=== PATIENT | female | born 1990 | race African-American/Black ===

== ENCOUNTER 2018-04-15 18:14 | Emergency (ER) | payer BC, SELFPAY ==
--- NOTE | 2018-04-15 20:24 | RAD REPORT ---
EXAM DESCRIPTION: RAD - Foot Left 3 View - 04/15/2018 7:31 pm CLINICAL HISTORY: Pain;Swelling<Reason For Exam>Pain;Swelling COMPARISON: No comparisons<Comparisons> FINDINGS: Transverse fracture is present at the proximal shaft fifth metatarsal. No distraction or a ngulation deformity. No other fracture or acute bone finding. No destructive bone process. Soft tissue swelling is present near the fracture site. No foreign body. IMPRESSION: Transverse fracture proximal shaft fifth metatarsal without distraction or angulation.
--- NOTE | 2018-04-15 20:25 | RAD REPORT ---
EXAM DESCRIPTION: RAD - Ankle Left 3 View - 04/15/2018 7:32 pm CLINICAL HISTORY: Pain;Swelling<Reason For Exam> COMPARISON: No comparisons<Comparisons> FINDINGS: No fracture, dislocation or periosteal reaction. No joint effusion seen. No joint space na rrowing. No soft tissue abnormality. Lateral soft tissue swelling is present. IMPRESSION: Soft tissue swelling with no left ankle fracture.
--- NOTE | 2018-04-15 20:38 | EDPHYS ---
Physician Documentation [facility] Name: Denis Arroyo Age: 27 yrs Sex: Female : 1990 Arrival Date: 04/15/2018 Time: 18:23 Bed 11 Private MD: ED Physician Chris Hill HPI: 04/15 19:31 This 27 yrs old Black Female presents to ER via Ambulatory with complaints of Left pm1 Ankle Injury. 19:31 The patient presents with pain, that is acute. The complaints affect the left ankle. pm1 19:31 Onset: The symptoms/episode began/occurred 3 day(s) ago. Context: The problem was pm1 sustained outdoors, resulted from hit by a horseshoe. Associated signs and symptoms: Pertinent positives: swelling, Pertinent negatives: calf tenderness, fever. Modifying factors: the symptoms are aggravated by wearing shoes. Severity of symptoms: in the emergency department the symptoms are actually worse. The patient has not experienced similar symptoms in the past. [place] a horseshoe on the lateral aspect of her left ankle and foot. 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 - Social history:: Smoking status: Patient/guardian denies using tobacco. - Ebola Screening: : No symptoms or risks identified at this time. ROS: 19:31 Constitutional: Negative for fever, chills, and weight loss, Eyes: Negative for injury, pm1 pain, redness, and discharge, ENT: Negative for injury, pain, and discharge, Neck: Negative for injury, pain, and swelling, Cardiovascular: Negative for chest pain, palpitations, and edema, Respiratory: Negative for shortness of breath, cough, wheezing, and pleuritic chest pain, Abdomen/GI: Negative for abdominal pain, nausea, vomiting, diarrhea, and constipation, Back: Negative for injury and pain. 19:31 Skin: Negative for injury, rash, and discoloration, Neuro: Negative for headache, weakness, numbness, tingling, and seizure. 19:31 MS/extremity: Positive for pain, swelling, tenderness, of the lateral side of left foot and left lateral ankle. Exam: 19:31 Constitutional: This is a well developed, well nourished patient who is awake, alert, pm1 and in no acute distress. Head/Face: Normocephalic, atraumatic. Neck: Trachea midline, no thyromegaly or masses palpated, and no cervical lymphadenopathy. Supple, full range of motion without nuchal rigidity, or vertebral point tenderness. No Meningismus. Chest/axilla: Normal chest wall appearance and motion. Nontender with no deformity. No lesions are appreciated. Cardiovascular: Regular rate and rhythm with a normal S1 and S2. No gallops, murmurs, or rubs. Normal PMI, no JVD. No pulse deficits. Respiratory: Lungs have equal breath sounds bilaterally, clear to auscultation and percussion. No rales, rhonchi or wheezes noted. No increased work of breathing, no retractions or nasal flaring. Back: No spinal tenderness. No costovertebral tenderness. Full range of motion. Skin: Warm, dry with normal turgor. Normal color with no rashes, no lesions, and no evidence of cellulitis. 19:31 Musculoskeletal/extremity: Extremities: grossly normal except: noted in the left lateral ankle and lateral side of left foot: swelling, tenderness, There is no evidence of decreased ROM, ROM: intact in all extremities, Circulation is intact in all extremities. Vital Signs: 18:40 BP 142 / 94; Pulse 104; Resp 18; Temp 97.4; Pulse Ox 100% ; Weight 72.57 kg; Height 5 sv ft. 6 in. (167.64 cm); Pain 4/10; 21:18 BP 131 / 84; Pulse 89; Resp 16; Pulse Ox 99% ; Pain 2/10; sr5 18:40 Body Mass Index 25.82 (72.57 kg, 167.64 cm) sv MDM: 19:20 Patient medically screened. pm1 20:30 Data reviewed: vital signs. Data interpreted: Pulse oximetry: on room air is 100 %. pm1 Interpretation: normal. Counseling: I had a detailed discussion with the patient and/or guardian regarding: the historical points, exam findings, and any diagnostic results supporting the discharge/admit diagnosis, radiology results, the need for outpatient follow up, for definitive care, a orthopedic surgeon, a armature repairer, to return to the emergency department if symptoms worsen or persist or if there are any questions or concerns that arise at home. 04/15 18:41 Order name: Foot Left 3 View XRAY; Complete Time: 20:28 sv 04/15 18:41 Order name: Ankle Left 3 View XRAY; Complete Time: 20:28 sv 04/15 20:30 Order name: Posterior Orthoglass Ankle Splint; Complete Time: 21:16 pm1 04/15 20:30 Order name: Crutches; Complete Time: 21:16 pm1 Administered Medications: No medications were administered Disposition: 04/16 01:17 Co-signature as Attending Physician, Chris Hill MD I agree with the assessment and tw4 plan of care. Attestation: The patient's history, exam findings, diagnostics, and a summary of any interventions or procedures was reviewed in detail with Az Gary NP. Disposition: 04/15/18 20:35 Discharged to Home. Impression: Displaced fracture of fifth metatarsal bone, left foot. - Condition is Stable. - Discharge Instructions: Cast or Splint Care, Adult, Crutch Use, Metatarsal Fracture. - Prescriptions for Tylenol- Codeine #3 300-30 mg Oral Tablet - take 2 tablets by ORAL route every 6 hours As needed; 20 tablet. - Medication Reconciliation Form, Thank You Letter, Antibiotic Education, Prescription Opioid Use, Work release form form. - Follow up: Emergency Department; When: As needed; Reason: Worsening of condition. Follow up: Miguel Chapman MD; When: 2 - 3 days; Reason: Recheck today's complaints, Continuance of care, Re-evaluation by your physician. Follow up: Rangel Lomas DPM; When: 2 - 3 days; Reason: Recheck today's complaints, Continuance of care, Re-evaluation by your physician. - Problem is new. - Symptoms have improved. Signatures: Dispatcher [employer] Susanna Kearney RN RN sv Marinas, Patrick, NP MACHINE III COREMAKER pm1 Foreign Husain RN RN sr5 Chris Hill MD MD tw4 Corrections: (The following items were deleted from the chart) 04/15 21:16 20:35 04/15/2018 20:35 Discharged to Home. Impression: Displaced fracture of fifth sr5 metatarsal bone, left foot. Condition is Stable. Forms are Medication Reconciliation Form, Thank You Letter, Antibiotic Education, Prescription Opioid Use. Follow up: Emergency Department; When: As needed; Reason: Worsening of condition. Follow up: Miguel Chapman; When: 2 - 3 days; Reason: Recheck today's complaints, Continuance of care, Re-evaluation by your physician. Follow up: Dr. Rangel Lomas; When: 2 - 3 days; Reason: Recheck today's complaints, Continuance of care, Re-evaluation by your physician. Problem is new. Symptoms have improved. pm1
--- NOTE | 2018-04-15 20:38 | ER ---
Nurse's Notes [facility] Name: Denis Arroyo Age: 27 yrs Sex: Female : 1990 Arrival Date: 04/15/2018 Time: 18:23 Bed 11 Private MD: Diagnosis: Displaced fracture of fifth metatarsal bone, left foot Presentation: 04/15 18:38 Presenting complaint: Patient states: left foot and ankle pain after "hearing a pop" sv and then having a horseshoe land on her left foot. Transition of care: patient was not received from another setting of care. Onset of symptoms is unknown. Care prior to arrival: None. 18:38 Method Of Arrival: Ambulatory sv 18:38 Acuity: SALINAS 4 sv 21:21 Risk Assessment: Do you want to hurt yourself or someone else?. sr5 Triage Assessment: 18:41 General: Appears in no apparent distress. uncomfortable, Behavior is calm, cooperative, sv appropriate for age. Pain: Complains of pain in left foot and left lateral ankle Pain currently is 4 out of 10 on a pain scale. Neuro: Level of Consciousness is awake, alert, obeys commands, Oriented to person, place, time, situation, Moves all extremities. Full function Gait is steady. Respiratory: Respiratory effort is even, unlabored, Respiratory pattern is regular, symmetrical. 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 - Social history:: Smoking status: Patient/guardian denies using tobacco. - Ebola Screening: : No symptoms or risks identified at this time. Screenin:18 Abuse screen: Denies threats or abuse. Nutritional screening: No deficits noted. sr5 Tuberculosis screening: No symptoms or risk factors identified. Fall Risk No fall in past 12 months (0 pts). Secondary diagnosis (15 points) No IV (0 pts). Ambulatory Aid- Crutches/Cane/Walker (15 pts). Gait- Impaired (20 pts.). Mental Status- Oriented to own ability (0 pts). Total Jimenez Fall Scale indicates Low Risk Score (25-44 pts). Fall prevention measures have been instituted. Side Rails Up X 2 Family Present and informed to notify staff if they need to leave bedside As available Patient and Family Educated on Fall Prevention Program and strategies. Assessment: 21:18 General: Appears uncomfortable, Behavior is calm, cooperative. Pain: Complains of pain sr5 in left leg and left foot and left lateral ankle. Neuro: No deficits noted. Cardiovascular: No deficits noted. Respiratory: No deficits noted. GI: No deficits noted. : No deficits noted. EENT: No deficits noted. Derm: No deficits noted. Musculoskeletal: Swelling present in left foot and left lateral ankle. Vital Signs: 18:40 BP 142 / 94; Pulse 104; Resp 18; Temp 97.4; Pulse Ox 100% ; Weight 72.57 kg; Height 5 sv ft. 6 in. (167.64 cm); Pain 4/10; 21:18 BP 131 / 84; Pulse 89; Resp 16; Pulse Ox 99% ; Pain 2/10; sr5 18:40 Body Mass Index 25.82 (72.57 kg, 167.64 cm) sv ED Course: 18:23 Patient arrived in ED. es 18:39 Triage completed. sv 18:40 Arm band placed on left wrist. sv 18:41 X-ray ordered. sv 19:15 Foreign Husain, RN is Primary Nurse. sr5 19:20 Az Gary NP is PHCP. pm1 19:20 Chris Hill MD is Attending Physician. pm1 19:23 Foot Left 3 View XRAY In Process Unspecified. EDMS 19:23 Ankle Left 3 View XRAY In Process Unspecified. EDMS 20:31 Miguel Chapman MD is Referral Physician. pm1 20:34 Rangel Lomas DPM is Referral Physician. pm1 21:18 Patient has correct armband on for positive identification. Bed in low position. Call sr5 light in reach. 21:18 No provider procedures requiring assistance completed. Patient did not have IV access sr5 during this emergency room visit. Crutch training done. Orthoglass splint: Posterior short lleg splint applied on left leg. pt tolerated splint application well, cap refill <3 seconds, splint education provided. Administered Medications: No medications were administered Outcome: 20:35 Discharge ordered by . pm1 21:16 Patient left the ED. sr5 21:16 Discharged to home via wheelchair, with crutches, with family. sr5 21:16 Condition: good 21:16 Instructed on discharge instructions, follow up and referral plans. crutch walking, splint care Demonstrated understanding of instructions, follow-up care, crutch walking, splint care. Signatures: Dispatcher [employer] Susanna Kearney, RN RN Franchesca De La O Patrick, SOFTWARE DEVELOPMENT ANALYST SOFTWARE DEVELOPMENT ANALYST pm1 Foreign Husain RN RN sr5
== END 2018-04-15 21:16 | disposition home or self-care (01) ==
LOC: ER 18:14
DX: S92.352A Displaced fracture of fifth metatarsal bone, left foot, initial encounter for closed fracture (principal); W21.89XA Striking against or struck by other sports equipment, initial encounter; Y93.89 Activity, other specified; Y92.9 Unspecified place or not applicable; E11.8 Type 2 diabetes mellitus with unspecified complications
CPT/HCPCS: 99283

== ENCOUNTER 2018-05-26 21:47 | Emergency (ER) | payer SELFPAY ==
[2018-05-26] MEDS ORDERED: NA CHLORIDE 0.9% 1,000 ML ONE (23:06)
[2018-05-26 23:12] LABS: Urine Blood 2+ (NEG); Urine Glucose 2+ (NEG); Urine Protein 3+ (NEG); Urine pH 5.5 (5.0-7.0)
[2018-05-26] MEDS ORDERED: CEFTRIAXONE/SWI 1gm 1 GM/10 ML SYR ONE (23:33)
[2018-05-26] MEDS ORDERED: INSULIN -REGULAR HUMAN 50 UNIT/0.5 ML ML ONE (23:33)
[2018-05-26 23:37] LABS: Absolute Lymphocytes (CBC) 1.1 K/uL (0.7-4.9); Absolute Monocytes 0.8 K/uL (0.1-1.3); Basophils % 0.4 % (0-1.3); Eosinophils % 0.4 % (0-4.4); Hematocrit 38.8 % (36.0-45.0); Lymphocytes % 9.2 % (15.3-44.8); MCH 23.7 pg (27.0-35.0); MCV 74.2 fL (80-100); Monocytes % 6.8 % (3.3-12.3); RBC Red Blood Cell Count 5.22 M/uL (3.86-4.86)
[2018-05-26 23:48] LABS: ALT/SGPT 16 U/L (12-78); AST/SGOT 11 U/L (15-37); Albumin 3.3 g/dL (3.4-5.0); Alkaline Phosphatase 86 U/L (45-117); BUN Blood Urea Nitrogen 10 mg/dL (7-18); Bicarbonate 26 mmol/L (21-32); Bilirubin Direct < 0.1 mg/dL (0-0.2); Bilirubin Total 0.2 mg/dL (0.2-1.0); Glucose Level 391 mg/dL (74-106); Potassium 3.7 mmol/L (3.5-5.1); Protein, Total 7.8 g/dL (6.4-8.2); Sodium Level 135 mmol/L (136-145)
[2018-05-27 00:20] LABS: Urine Bacteria <20 /HPF (<20); Urine Culture Reflex Order NOT NEEDED
--- NOTE | 2018-05-27 01:17 | ER ---
Nurse's Notes [facility] Name: Denis Arroyo Age: 27 yrs Sex: Female : 1990 Arrival Date: 05/26/2018 Time: 22:00 Bed 30 Private MD: Corky Hicks R Diagnosis: Urinary tract infection, site not specified;Diabetes mellitus due to underlying condition with hyperglycemia Presentation: 05/26 22:32 Presenting complaint: Patient states: left flank pain, no urinary complaints, no CVA tl3 tenderness. Started this am. Transition of care: patient was not received from another setting of care. Onset of symptoms was May 26, 2018 at 07:00. Risk Assessment: Do you want to hurt yourself or someone else? Patient reports no desire to harm self or others. Initial Sepsis Screen: Does the patient meet any 2 criteria? No. Patient's initial sepsis screen is negative. Does the patient have a suspected source of infection? No. Patient's initial sepsis screen is negative. Care prior to arrival: None. 22:32 Method Of Arrival: Ambulatory tl3 22:32 Acuity: SALINAS 3 tl3 Triage Assessment: 22:34 General: Appears uncomfortable, slender, well groomed, well developed, well nourished, tl3 Behavior is calm, cooperative, appropriate for age. Pain: Complains of pain in left flank. EENT: No signs and/or symptoms were reported regarding the EENT system. Neuro: Level of Consciousness is awake, alert, obeys commands. Neuro: Oriented to person, place, time, situation, Appropriate for age. Cardiovascular: Patient's skin is warm and dry. Respiratory: Airway is patent Respiratory effort is even, unlabored, Respiratory pattern is regular, symmetrical. GI: No signs and/or symptoms were reported involving the gastrointestinal system. : No signs and/or symptoms were reported regarding the genitourinary system. Urine is clear. Derm: No signs and/or symptoms reported regarding the dermatologic system. Musculoskeletal: No signs and/or symptoms reported regarding the musculoskeletal system. 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 - Social history:: Smoking status: unknown. - Ebola Screening: : No symptoms or risks identified at this time. Screenin:37 Abuse screen: Denies threats or abuse. Nutritional screening: No deficits noted. tl3 Tuberculosis screening: No symptoms or risk factors identified. Fall Risk None identified. Assessment: 22:37 Reassessment: No changes from previously documented assessment. tl3 23:21 Reassessment: Patient appears in no apparent distress at this time. No changes from tl3 previously documented assessment. Patient and/or family updated on plan of care and expected duration. Pain level reassessed. Patient is alert, oriented x 3, equal unlabored respirations, skin warm/dry/pink. 05/27 00:52 Reassessment: Patient appears in no apparent distress at this time. No changes from tl3 previously documented assessment. Patient and/or family updated on plan of care and expected duration. Pain level reassessed. Patient is alert, oriented x 3, equal unlabored respirations, skin warm/dry/pink. Patient states feeling better. Vital Signs: 05/26 22:34 BP 136 / 84; Pulse 117; Resp 20; Temp 98.7(O); Pulse Ox 100% ; tl3 23:21 BP 130 / 85; Pulse 109; Resp 18; Pulse Ox 98% on R/A; tl3 05/27 00:52 BP 152 / 92; Pulse 106; Resp 18; Pulse Ox 100% ; tl3 ED Course: 05/26 22:00 Patient arrived in ED. am2 22:00 Corky Hicks MD is Private Physician. am2 22:03 [facility]. snw 22:03 Bora Miguel MD is Attending Physician. snw 22:32 Marla Carney RN is Primary Nurse. tl3 22:33 Triage completed. tl3 22:34 Arm band placed on right wrist. tl3 22:37 Patient has correct armband on for positive identification. Bed in low position. Side tl3 rails up X 1. Pulse ox on. NIBP on. Warm blanket given. 22:37 No provider procedures requiring assistance completed. tl3 23:04 Inserted saline lock: 22 gauge in right antecubital area, using aseptic technique. jb5 Blood collected. 23:05 Urine --Ancillary (enter results) Sent. jb5 23:05 Blood Culture Adult (2) Sent. jb5 23:05 Hepatic Function Sent. jb5 23:05 Basic Metabolic Panel Sent. jb5 23:05 CBC with Diff Sent. jb5 23:05 Urine Dipstick--Ancillary (enter results) Sent. jb5 23:05 Urine Culture Sent. jb5 23:05 Urine Microscopic Only Sent. jb5 05/27 01:16 Corky Hicks MD is Referral Physician. snw 01:25 IV discontinued, intact, bleeding controlled, No redness/swelling at site. Pressure mg2 dressing applied. Administered Medications: 05/26 23:00 Drug: NS 0.9% 1000 ml Route: IV; Rate: 1 bolus; Site: right antecubital; Delivery: tl3 Primary tubing; 05/27 00:53 Follow up: IV Status: Completed infusion; IV Intake: 1000ml tl3 05/26 23:36 Drug: Rocephin 1 grams Route: IV; Rate: calculated rate; Infused Over: 5 mins; Site: tl3 right antecubital; Delivery: Primary tubing; 23:36 Follow up: IV Status: Completed infusion; IV Intake: 20ml tl3 23:36 Drug: Insulin Regular Human 5 units {Co-Signature: cornelia (Conchis Ortega RN).} Route: tl3 IVP; Site: right antecubital; 05/27 00:53 Follow up: Response: Blood sugar is lowered tl3 05/26 23:37 Drug: Insulin Regular Human 5 units {Co-Signature: cornelia (Conchis Ortega RN).} Route: tl3 Sub-Q; Site: abdomen; 05/27 00:53 Follow up: Response: Blood sugar is lowered tl3 Point of Care Testing: Blood Glucose: 05/26 22:59 Blood Glucose: 337 mg/dL; lp1 05/27 00:21 Blood Glucose: 263 mg/dL; lp1 Ranges: Intake: 05/26 23:36 IV: 20ml; Total: 20ml. tl3 05/27 00:53 IV: 1000ml; Total: 1020ml. tl3 Outcome: 01:17 Discharge ordered by . snw 01:25 Discharged to home ambulatory. mg2 01:25 Condition: stable 01:25 Discharge instructions given to patient, Instructed on discharge instructions, follow up and referral plans. medication usage, Demonstrated understanding of instructions, follow-up care, medications, Prescriptions given X 2. 01:26 Patient left the ED. mg2 Addendum: 05/30/2018 10:36 Addendum: Culture Results: Positive urine culture. Bacteria is resistant to, has i w intermediate sensitivity, or is not tested against prescribed antibiotics. Report given to WILBERT for further evaluation and then to manager transport for follow up with patient. Signatures: Beth Tran, [employer] [employer] Aleja Henry, RN RN iw Heidy Lazaro RN RN lp1 Carlita Christie jb5 Marcelina Bob am2 Marla Carney, RN RN tl3 Davidson Sullivan, NURIA RN mg2 Conchis Ortega RN fc
--- NOTE | 2018-05-27 01:17 | EDPHYS ---
Physician Documentation [facility] Name: Denis Arroyo Age: 27 yrs Sex: Female : 1990 Arrival Date: 05/26/2018 Time: 22:00 Bed 30 Private MD: Corky Hicks R ED Physician Bora Miguel HPI: 05/26 23:20 This 27 yrs old Black Female presents to ER via Ambulatory with complaints of Flank snw Pain. 23:20 The patient complains of pain in the left low back and left mid back. The pain radiates snw to the left inguinal area and left iliac crest. Onset: The symptoms/episode began/occurred suddenly, today. Associated signs and symptoms: The patient has no apparent associated signs or symptoms. Severity of pain: At its worst the pain was moderate. It is unknown whether or not the patient has had similar symptoms in the past. It is unknown whether or not the patient has recently seen a physician. no fever, no urinary s/s, no vag dc. 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 - Social history:: Smoking status: unknown. - Ebola Screening: : No symptoms or risks identified at this time. ROS: 23:19 Constitutional: Negative for fever, chills, and weight loss, Eyes: Negative for injury, snw pain, redness, and discharge, ENT: Negative for injury, pain, and discharge, Neck: Negative for injury, pain, and swelling, Cardiovascular: Negative for chest pain, palpitations, and edema, Respiratory: Negative for shortness of breath, cough, wheezing, and pleuritic chest pain, Abdomen/GI: Negative for abdominal pain, nausea, vomiting, diarrhea, and constipation, left lower quad with rad to back/flank 23:19 : Negative for injury, bleeding, discharge, and swelling, MS/Extremity: Negative for injury and deformity, Skin: Negative for injury, rash, and discoloration, Neuro: Negative for headache, weakness, numbness, tingling, and seizure. 23:19 Back: Positive for flank pain, on the left. Exam: 23:19 Constitutional: This is a well developed, well nourished patient who is awake, alert, snw and in no acute distress. Head/Face: Normocephalic, atraumatic. Eyes: Pupils equal round and reactive to light, extra-ocular motions intact. Lids and lashes normal. Conjunctiva and sclera are non-icteric and not injected. Cornea within normal limits. Periorbital areas with no swelling, redness, or edema. ENT: Nares patent. No nasal discharge, no septal abnormalities noted. Tympanic membranes are normal and external auditory canals are clear. Oropharynx with no redness, swelling, or masses, exudates, or evidence of obstruction, uvula midline. Mucous membranes moist. Neck: Trachea midline, no thyromegaly or masses palpated, and no cervical lymphadenopathy. Supple, full range of motion without nuchal rigidity, or vertebral point tenderness. No Meningismus. Chest/axilla: Normal chest wall appearance and motion. Nontender with no deformity. No lesions are appreciated. 23:19 Respiratory: Lungs have equal breath sounds bilaterally, clear to auscultation and percussion. No rales, rhonchi or wheezes noted. No increased work of breathing, no retractions or nasal flaring. Back: No spinal tenderness. No costovertebral tenderness. Full range of motion. Skin: Warm, dry with normal turgor. Normal color with no rashes, no lesions, and no evidence of cellulitis. MS/ Extremity: Pulses equal, no cyanosis. Neurovascular intact. Full, normal range of motion. Neuro: Awake and alert, GCS 15, oriented to person, place, time, and situation. Cranial nerves II-XII grossly intact. Motor strength 5/5 in all extremities. Sensory grossly intact. Cerebellar exam normal. Normal gait. 23:19 Cardiovascular: Rate: tachycardic, Rhythm: regular, Heart sounds: normal. 23:19 Abdomen/GI: Inspection: abdomen appears normal, Bowel sounds: normal, Palpation: moderate abdominal tenderness, in the left lower quadrant. Vital Signs: 22:34 BP 136 / 84; Pulse 117; Resp 20; Temp 98.7(O); Pulse Ox 100% ; tl3 23:21 BP 130 / 85; Pulse 109; Resp 18; Pulse Ox 98% on R/A; tl3 05/27 00:52 BP 152 / 92; Pulse 106; Resp 18; Pulse Ox 100% ; tl3 MDM: 05/26 23:03 Patient medically screened. w 05/27 01:21 Data reviewed: vital signs, nurses notes. Data interpreted: Pulse oximetry: on room air snw is 100 %. Interpretation: normal. Counseling: I had a detailed discussion with the patient and/or guardian regarding: the historical points, exam findings, and any diagnostic results supporting the discharge/admit diagnosis, lab results, the need for outpatient follow up, to return to the emergency department if symptoms worsen or persist or if there are any questions or concerns that arise at home. Special discussion: Based on the patient's Hx, exam, and Dx evaluation, there is no indication for emergent surgery or inpatient Tx. It is understood by the patient/guardian that if the Sx's persist or worsen they need to return immediately for re-evaluation. I have referred the patient to see his PCP for further evaluation of high blood pressure. Based on the history and exam findings, there is no indication for further emergent testing or inpatient evaluation. I discussed with the patient/guardian the need to see the primary care provider for further evaluation of the symptoms. 15:21 ED course: pt unable to afford Vantin, rx changed to Augmentin 500mg po TID x 10d and snw Macrobid 100mg po BID x 10. 05/26 22:03 Order name: Urine Culture [facility] 05/26 22:03 Order name: Urine Microscopic Only; Complete Time: 00:24 snw 05/26 22:40 Order name: Urine Dipstick--Ancillary (enter results); Complete Time: 23:14 mt 05/26 22:47 Order name: Basic Metabolic Panel; Complete Time: 23:51 snw 05/26 22:47 Order name: CBC with Diff; Complete Time: 23:51 snw 05/26 22:47 Order name: Hepatic Function; Complete Time: 23:51 snw 05/26 22:03 Order name: Urine Test (obtain specimen); Complete Time: 22:38 snw 05/26 22:03 Order name: Urine Dipstick-Ancillary (obtain specimen); Complete Time: 22:38 snw 05/26 22:47 Order name: Blood Culture Adult (2) snw 05/26 22:51 Order name: Urine --Ancillary (enter results); Complete Time: 23:14 mt 05/26 22:47 Order name: Labs collected and sent; Complete Time: 22:59 snw 05/26 22:47 Order name: FSBS; Complete Time: 22:58 snw 05/27 00:25 Order name: FSBS; Complete Time: 00:31 snw Administered Medications: 05/26 23:00 Drug: NS 0.9% 1000 ml Route: IV; Rate: 1 bolus; Site: right antecubital; Delivery: tl3 Primary tubing; 05/27 00:53 Follow up: IV Status: Completed infusion; IV Intake: 1000ml tl3 05/26 23:36 Drug: Rocephin 1 grams Route: IV; Rate: calculated rate; Infused Over: 5 mins; Site: tl3 right antecubital; Delivery: Primary tubing; 23:36 Follow up: IV Status: Completed infusion; IV Intake: 20ml tl3 23:36 Drug: Insulin Regular Human 5 units {Co-Signature: cornelia (Conchis Ortega RN).} Route: tl3 IVP; Site: right antecubital; 05/27 00:53 Follow up: Response: Blood sugar is lowered tl3 05/26 23:37 Drug: Insulin Regular Human 5 units {Co-Signature: cornelia (Conchis Ortega RN).} Route: tl3 Sub-Q; Site: abdomen; 05/27 00:53 Follow up: Response: Blood sugar is lowered tl3 Point of Care Testing: Blood Glucose: 05/26 22:59 Blood Glucose: 337 mg/dL; lp1 05/27 00:21 Blood Glucose: 263 mg/dL; lp1 Ranges: Critical Glucose Levels:Adult <50 mg/dl or >400 mg/dl <40 mg/dl or >180 mg/dl Disposition: 02:42 Co-signature as Attending Physician, Bora Miguel MD. rn Disposition: 05/27/18 01:17 Discharged to Home. Impression: Urinary tract infection, site not specified, Diabetes mellitus due to underlying condition with hyperglycemia. - Condition is Stable. - Discharge Instructions: Urinary Tract Infection, Adult, Form - Daily Diabetes Record, Hypertension, [id number], Rehydration, Adult. - Prescriptions for cefpodoxime 200 mg Oral Tablet - take 1 tablet by ORAL route every 12 hours with food; 20 tablet. promethazine 25 mg Oral Tablet - take 1 tablet by ORAL route every 6 hours As needed; 20 tablet. - Medication Reconciliation Form, Thank You Letter, Antibiotic Education, Prescription Opioid Use form. - Follow up: Corky Hicks MD; When: 1 - 2 days; Reason: Recheck today's complaints, Continuance of care, Re-evaluation by your physician. Follow up: Emergency Department; When: As needed; Reason: Worsening of condition. Signatures: Dispatcher [employer] EDMS Beth Tran, IRRIGATION SPECIALIST-C IRRIGATION SPECIALIST-Csnw Bora Miguel MD MD rn Lowrey, Tammy, RN RN tl3 Davidson Sullivan RN RN mg2 Conchis Ortega RN Corrections: (The following items were deleted from the chart) 01:26 01:17 05/27/2018 01:17 Discharged to Home. Impression: Urinary tract infection, site mg2 not specified; Diabetes mellitus due to underlying condition with hyperglycemia. Condition is Stable. Forms are Medication Reconciliation Form, Thank You Letter, Antibiotic Education, Prescription Opioid Use. Follow up: Corky Hicks; When: 1 - 2 days; Reason: Recheck today's complaints, Continuance of care, Re-evaluation by your physician. Follow up: Emergency Department; When: As needed; Reason: Worsening of condition. snw
== END 2018-05-27 01:26 | disposition home or self-care (01) ==
LOC: ER 21:47
DX: N39.0 Urinary tract infection, site not specified (principal); E11.65 Type 2 diabetes mellitus with hyperglycemia; Z79.4 Long term (current) use of insulin
CPT/HCPCS: 36415; 80048; 80076; 81003; 81015; 81025; 82962; 85025; 87040; 87077; 87086; 87088; 87186; 96361; 96372; 96374; 96375; 99284; J0696; J7030

== ENCOUNTER 2019-03-04 16:54 | Emergency (ER) | payer SELFPAY ==
[2019-03-04] MEDS ORDERED: ACETAMINOPHEN 325 MG TABLET ONE (17:48)
--- NOTE | 2019-03-04 19:06 | RAD REPORT ---
EXAM DESCRIPTION: RAD - Foot Left 3 View - 03/04/2019 6:40 pm CLINICAL HISTORY: Left Foot pain FINDINGS: No acute fracture or dislocation is seen. Osteoporosis. Old fracture fifth metatarsal
--- NOTE | 2019-03-04 19:12 | ER ---
Nurse's Notes [facility] Name: Denis Arroyo Age: 28 yrs Sex: Female : 1990 Arrival Date: 03/04/2019 Time: 16:58 Bed 24 Private MD: Unknown, Unknown Diagnosis: Pain in left foot Presentation: 03/04 17:06 Presenting complaint: Left foot pain and swelling x 1 week, denies injury. Transition hb of care: patient was not received from another setting of care. Onset of symptoms was February 25, 2019. Risk Assessment: Do you want to hurt yourself or someone else? Patient reports no desire to harm self or others. Care prior to arrival: None. 17:06 Method Of Arrival: Ambulatory hb 17:06 Acuity: SALINAS 4 hb 19:39 Initial Sepsis Screen: Does the patient meet any 2 criteria? No. Patient's initial mg2 sepsis screen is negative. Does the patient have a suspected source of infection? No. Patient's initial sepsis screen is negative. 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 - Social history:: Smoking status: Patient/guardian denies using tobacco. - Ebola Screening: : No symptoms or risks identified at this time. Screenin:38 Abuse screen: Denies threats or abuse. Denies injuries from another. Nutritional mg2 screening: No deficits noted. Tuberculosis screening: No symptoms or risk factors identified. Fall Risk None identified. Assessment: 17:35 General: Appears in no apparent distress. comfortable, Behavior is calm, cooperative. mg2 Pain: Complains of pain in left foot Pain does not radiate. Pain currently is 5 out of 10 on a pain scale. Quality of pain is described as aching, Pain began gradually. Neuro: Level of Consciousness is awake, alert, obeys commands, Oriented to person, place, time, situation. Cardiovascular: Capillary refill < 3 seconds Patient's skin is warm and dry. Respiratory: Airway is patent Respiratory effort is even, unlabored, Respiratory pattern is regular, symmetrical. GI: No signs and/or symptoms were reported involving the gastrointestinal system. : No signs and/or symptoms were reported regarding the genitourinary system. EENT: No signs and/or symptoms were reported regarding the EENT system. Derm: Skin is intact, is healthy with good turgor, Skin is pink, warm \T\ dry. normal. Musculoskeletal: Circulation, motion, and sensation intact. Capillary refill < 3 seconds, Swelling present in left foot. Vital Signs: 17:06 BP 124 / 80; Pulse 108; Resp 16; Temp 97.2; Pulse Ox 100% on R/A; Weight 69.85 kg; hb Height 5 ft. 6 in. (167.64 cm); Pain 7/10; 18:30 BP 118 / 78; Pulse 98; Resp 18; Temp 98; Pulse Ox 100% on R/A; mg2 19:38 BP 120 / 78; Pulse 90; Resp 18; Temp 98; Pulse Ox 100% on R/A; Pain 2/10; mg2 17:06 Body Mass Index 24.86 (69.85 kg, 167.64 cm) hb ED Course: 16:58 Patient arrived in ED. ag5 16:58 Unknown, Unknown is Private Physician. ag5 17:06 Triage completed. hb 17:06 Arm band placed on left wrist. hb 17:12 Chino Duffy PA is PHCP. [facility] 17:12 Thomas Naqvi MD is Attending Physician. m 17:15 Davidson Sullivan, RN is Primary Nurse. mg2 17:38 No provider procedures requiring assistance completed. Patient did not have IV access mg2 during this emergency room visit. 18:41 Foot Left 3 View XRAY In Process Unspecified. EDMS 19:10 Eliceo Burrell MD is Referral Physician. jmm 19:39 Patient has correct armband on for positive identification. mg2 19:39 Crutch training done. Orthoglass splint: Posterior short lleg splint applied on left mg2 leg. checked by CATRACHITO Magana prior to discharge. Administered Medications: 17:33 Drug: Tylenol 650 mg Route: PO; mg2 18:54 Follow up: Response: No adverse reaction mg2 Outcome: 19:11 Discharge ordered by . jmm 19:40 Discharged to home via wheelchair, with crutches. mg2 19:40 Condition: good 19:40 Discharge instructions given to patient, Instructed on discharge instructions, follow up and referral plans. medication usage, crutch walking, Demonstrated understanding of instructions, follow-up care, medications, crutch walking, Prescriptions given X 1. 19:40 Patient left the ED. mg2 Signatures: Dispatcher [employer] EDMS Chino Duffy PA PA jmm Baxter, Heather, RN RN Davidson Sullivan RN RN [facility] Nicole Azevedo ag5
--- NOTE | 2019-03-04 19:12 | EDPHYS ---
Physician Documentation [facility] Name: Denis Arroyo Age: 28 yrs Sex: Female : 1990 Arrival Date: 03/04/2019 Time: 16:58 Bed 24 Private MD: Unknown, Unknown ED Physician Thomas Naqvi HPI: 03/04 17:24 This 28 yrs old Black Female presents to ER via Ambulatory with complaints of Foot Pain.[facility] [place] 17:24 The patient presents with pain, swelling. The complaints affect the lateral aspect of m left foot. Onset: The symptoms/episode began/occurred gradually, 1 week(s) ago. Modifying factors: The symptoms are alleviated by the symptoms are aggravated by nothing. Associated signs and symptoms: Pertinent positives: swelling, Pertinent negatives calf tenderness, fever, nausea, numbness, rash, tingling, weakness. The patient has experienced a previous episode. This is a 28 year old female with a history of dm that presents to the ED with complaints of left foot pain and swelling ongoing for the past week. patient denies trauma. patient states she had broken her left foot approx 1 year ago. denies fever, denies chills. . 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 - Social history:: Smoking status: Patient/guardian denies using tobacco. - Ebola Screening: : No symptoms or risks identified at this time. ROS: 17:24 Constitutional: Negative for fever, chills, and weight loss, Cardiovascular: Negative jmm for chest pain, palpitations, and edema, Respiratory: Negative for shortness of breath, cough, wheezing, and pleuritic chest pain. 17:24 MS/extremity: Positive for pain, swelling. 17:24 All other systems are negative. Exam: 17:24 Constitutional: This is a well developed, well nourished patient who is awake, alert, jmm and in no acute distress. Head/Face: atraumatic. Eyes: EOMI, no conjunctival erythema appreciated ENT: Moist Mucus Membranes Neck: Trachea midline, Supple Chest/axilla: Normal chest wall appearance and motion. Cardiovascular: Regular rate and rhythm. No edema appreciated Respiratory: Normal respirations, no respiratory distress appreciated Abdomen/GI: Non distended, soft Skin: General appearance color normal 17:24 Musculoskeletal/extremity: swelling noted to the left foot, mild tenderness along the lateral foot, full dorsalis pulse, compartments are soft NVI. No calf swelling or tenderness appreciated. . 17:24 Skin: Appearance: Color: normal in color. 17:24 Neuro: Orientation: is normal, Mentation: is normal, Memory: is normal, Gait: is steady. 17:24 Psych: Behavior/mood is pleasant, cooperative. Vital Signs: 17:06 BP 124 / 80; Pulse 108; Resp 16; Temp 97.2; Pulse Ox 100% on R/A; Weight 69.85 kg; hb Height 5 ft. 6 in. (167.64 cm); Pain 7/10; 18:30 BP 118 / 78; Pulse 98; Resp 18; Temp 98; Pulse Ox 100% on R/A; mg2 19:38 BP 120 / 78; Pulse 90; Resp 18; Temp 98; Pulse Ox 100% on R/A; Pain 2/10; mg2 17:06 Body Mass Index 24.86 (69.85 kg, 167.64 cm) hb MDM: 17:24 Patient medically screened. [facility] 19:09 Data reviewed: vital signs, nurses notes. Counseling: I had a detailed discussion with [facility] the patient and/or guardian regarding: the historical points, exam findings, and any diagnostic results supporting the discharge/admit diagnosis, radiology results, the need for outpatient follow up, to return to the emergency department if symptoms worsen or persist or if there are any questions or concerns that arise at home. ED course: Xray reveals old fracture. I do not suspect cellulitis. Patient is afebrile and non toxic in appearance. Patient advised to follow up with ortho for reevaluation. Patient is otherwise given strict return precautions. Patient understood and agrees with the plan of care. . 03/04 17:27 Order name: Foot Left 3 View XRAY; Complete Time: 19:07 [facility] 03/04 18:33 Order name: Posterior Leg Splint; Complete Time: 18:54 [facility] 03/04 18:33 Order name: Crutches; Complete Time: 18:54 coby Administered Medications: 17:33 Drug: Tylenol 650 mg Route: PO; mg2 18:54 Follow up: Response: No adverse reaction mg2 Disposition: 03/04/19 19:11 Discharged to Home. Impression: Pain in left foot. - Condition is Stable. - Discharge Instructions: Foot Pain. - Prescriptions for orphenadrine citrate 100 mg Oral Tablet Sustained Release - take 1 tablet by ORAL route 2 times per day As needed; 20 tablet. - Medication Reconciliation Form, Thank You Letter, Antibiotic Education, Prescription Opioid Use form. - Follow up: Eliceo Burrell MD; When: 2 - 3 days; Reason: Recheck today's complaints, Continuance of care, Re-evaluation by your physician. Addendum: 03/06/2019 17:54 Co-signature as Attending Physician, Thomas Naqvi MD. g s Signatures: Dispatcher [employer] EDMS Chino Duffy PA PA jmm Baxter, Heather, RN RN Thomas Naqvi MD MD Davidson Sullivan RN RN mg2 Corrections: (The following items were deleted from the chart) 03/04 19:40 19:11 03/04/2019 19:11 Discharged to Home. Impression: Pain in left foot. Condition is mg2 Stable. Forms are Medication Reconciliation Form, Thank You Letter, Antibiotic Education, Prescription Opioid Use. Follow up: Eliceo Burrell; When: 2 - 3 days; Reason: Recheck today's complaints, Continuance of care, Re-evaluation by your physician. coby
== END 2019-03-04 19:40 | disposition home or self-care (01) ==
LOC: ER 16:54
PROC: 2W3RX1Z Immobilization of Left Lower Leg using Splint (ICD-10-PCS; principal; 2019-03-04)
DX: M79.672 Pain in left foot (principal); M81.0 Age-related osteoporosis without current pathological fracture; E11.9 Type 2 diabetes mellitus without complications; Z79.4 Long term (current) use of insulin
CPT/HCPCS: 99284

== ENCOUNTER 2019-06-02 21:29 | Emergency (ER) | payer SELFPAY ==
[2019-06-02] MEDS ORDERED: HYDROCODONE/APAP 10/325 TAB ONE (21:46)
--- NOTE | 2019-06-02 21:47 | EDPHYS ---
Physician Documentation [facility] Name: Denis Arroyo Age: 28 yrs Sex: Female : 1990 Arrival Date: 06/02/2019 Time: 21:32 Bed 18 Private MD: Corky Hicks R ED Physician Bora Miguel HPI: 06/02 21:42 This 28 yrs old Black Female presents to ER via Ambulatory with complaints of rn Toothache, High Blood Pressure. 21:42 The patient presents with pain. The problem is located in the right lower 2nd molar. rn Onset: The symptoms/episode began/occurred 1 month(s) ago. Duration: The symptoms are intermittent. Modifying factors: The symptoms are alleviated by nothing, the symptoms are aggravated by chewing, food. Associated signs and symptoms: The patient has no apparent associated signs or symptoms, Pertinent negatives: dysphagia, fever, inability to eat, swelling, vomiting. Severity of symptoms: At their worst the symptoms were moderate, in the emergency department the symptoms are unchanged. The patient has experienced similar episodes in the past. REports seen by dentist today, has plans for surgery, either root canal or extraction soon, given abx, but no pain meds, reports pain now worse, especially when eating or drinking. Hasn't tried anything for the pain. No swelling or drainage. . Historical: - Allergies: 21:34 Ibuprofen; la1 - Home Meds: 21:37 Levemir subcutaneous [Active]; Novolog Sub-Q [Active]; cc3 - PMHx: 21:34 Diabetes - IDDM; la1 - Immunization history:: Adult Immunizations up to date. - Social history:: Smoking status: Patient/guardian denies using tobacco. - Ebola Screening: : No symptoms or risks identified at this time. - Family history:: not pertinent. - Hospitalizations: : No recent hospitalization is reported. ROS: 21:42 Constitutional: Negative for fever, chills, and weight loss, ENT: + tooth pain rn Exam: 21:42 Constitutional: This is a well developed, well nourished patient who is awake, alert, rn and in no acute distress. ENT: Poor dentition with several caps and fillings, defect in right lower 2nd molar, no sign of abscess, buccal space soft. Floor of mouth soft, no neck swelling or crepitus. Vital Signs: 21:35 BP 114 / 94; Pulse 123; Resp 16; Temp 98.4; Pulse Ox 100% on R/A; Weight 69.85 kg; la1 Height 5 ft. 6 in. (167.64 cm); Pain 10/10; 21:36 Pulse 117; la1 21:45 BP 136 / 95; Pulse 110; Resp 15 S; Pulse Ox 99% on R/A; cc3 21:35 Body Mass Index 24.86 (69.85 kg, 167.64 cm) la1 MDM: 21:37 Patient medically screened. rn 21:42 Differential diagnosis: dental caries, dental abscess. Data reviewed: vital signs, rn nurses notes, and as a result, I will discharge patient. Counseling: I had a detailed discussion with the patient and/or guardian regarding: the historical points, exam findings, and any diagnostic results supporting the discharge/admit diagnosis, the need for outpatient follow up, to return to the emergency department if symptoms worsen or persist or if there are any questions or concerns that arise at home. Special discussion: I discussed with the patient/guardian in detail that at this point there is no indication for admission to the hospital. It is understood, however, that if the symptoms persist or worsen the patient needs to return immediately for re-evaluation. Based on the history and exam findings, there is no indication for further emergent testing or inpatient evaluation. I discussed with the patient/guardian the need to see a dentist for further evaluation of the symptoms. 21:42 ED course: Recommend OTC anti-inflammatories, will add tylenol #3, and also recommend zak Muro. . Administered Medications: 21:49 Drug: [place] 10 mg-325 mg 1 tabs {Note: RASS 0.} Route: PO; cc3 22:00 Follow up: Response: No adverse reaction; Pain is decreased; RASS: Alert and Calm (0) cc3 Disposition: 06/02/19 21:46 Discharged to Home. Impression: Dental caries. - Condition is Stable. - Discharge Instructions: Dental Pain. - Prescriptions for Tylenol- Codeine #3 300-30 mg Oral Tablet - take 1 tablet by ORAL route every 6 hours As needed; 15 tablet. - Medication Reconciliation Form, Thank You Letter, Antibiotic Education, Prescription Opioid Use form. - Follow up: Private Physician; When: As needed; Reason: Recheck today's complaints, Re-evaluation by your physician. - Problem is an ongoing problem. - Symptoms have improved. Signatures: Bora Miguel MD MD rn Attema, Lee, RN RN la1 Donna Pandya cc3 Corrections: (The following items were deleted from the chart) 21:44 21:42 Constitutional: This is a well developed, well nourished patient who is awake, rn alert, and in no acute distress. ENT: Poor dentition with several caps and fillings, defect in right lower 2nd molar, no sign of abscess, buccal space soft. rn 22:00 21:46 06/02/2019 21:46 Discharged to Home. Impression: Dental caries. Condition is cc3 Stable. Forms are Medication Reconciliation Form, Thank You Letter, Antibiotic Education, Prescription Opioid Use. Follow up: Private Physician; When: As needed; Reason: Recheck today's complaints, Re-evaluation by your physician. Problem is an ongoing problem. Symptoms have improved. rn
--- NOTE | 2019-06-02 21:47 | ER ---
Nurse's Notes [facility] Name: Denis Arroyo Age: 28 yrs Sex: Female : 1990 Arrival Date: 06/02/2019 Time: 21:32 Bed 18 Private MD: Corky Hicks R Diagnosis: Dental caries Presentation: 06/02 21:35 Presenting complaint: Patient states: I have a bad tooth on the bottom, I went to the la1 dentist today and they area going to schedule me for a root canal and put me on abx but no pain meds and the pain is too bad. Transition of care: patient was not received from another setting of care. Onset of symptoms was June 02, 2019. Risk Assessment: Do you want to hurt yourself or someone else? Patient reports no desire to harm self or others. Initial Sepsis Screen: Does the patient meet any 2 criteria? No. Patient's initial sepsis screen is negative. Does the patient have a suspected source of infection? No. Patient's initial sepsis screen is negative. Care prior to arrival: None. 21:35 Method Of Arrival: Ambulatory la1 21:35 Acuity: SALINAS 5 la1 Triage Assessment: 21:37 General: Appears in no apparent distress. uncomfortable, Behavior is calm, cooperative, cc3 appropriate for age. Pain: Complains of pain in tooth. EENT: Reports pain tooth. Historical: - Allergies: 21:34 Ibuprofen; la1 - Home Meds: 21:37 Levemir subcutaneous [Active]; Novolog Sub-Q [Active]; cc3 - PMHx: 21:34 Diabetes - IDDM; la1 - Immunization history:: Adult Immunizations up to date. - Social history:: Smoking status: Patient/guardian denies using tobacco. - Ebola Screening: : No symptoms or risks identified at this time. - Family history:: not pertinent. - Hospitalizations: : No recent hospitalization is reported. Screenin:37 Abuse screen: Denies threats or abuse. Denies injuries from another. Nutritional cc3 screening: No deficits noted. Tuberculosis screening: No symptoms or risk factors identified. Fall Risk Ambulatory Aid- None/Bed Rest/Nurse Assist (0 pts). Gait- Normal/Bed Rest/Wheelchair (0 pts) Mental Status- Oriented to own ability (0 pts). Assessment: 21:37 General: Appears in no apparent distress. uncomfortable, Behavior is calm, cooperative, cc3 appropriate for age. Pain: Complains of pain in tooth Pain began since 1 month. Neuro: Level of Consciousness is awake, alert, obeys commands, Oriented to person, place, time, situation, Appropriate for age. Cardiovascular: Denies chest pain, Heart tones S1 S2 present Capillary refill < 3 seconds in bilateral fingers Patient's skin is warm and dry. Respiratory: Airway is patent Respiratory effort is even, unlabored, Respiratory pattern is regular, symmetrical, Breath sounds are clear bilaterally. GI: Abdomen is round non-distended, Bowel sounds present X 4 quads. : No signs and/or symptoms were reported regarding the genitourinary system. EENT: No signs and/or symptoms were reported regarding the EENT system. Derm: Skin is intact, is healthy with good turgor, Skin is pink, warm \T\ dry. normal. Musculoskeletal: Circulation, motion, and sensation intact. Range of motion: intact in all extremities. 22:00 Reassessment: Patient appears in no apparent distress at this time. Patient and/or cc3 family updated on plan of care and expected duration. Pain level reassessed. Patient is alert, oriented x 3, equal unlabored respirations, skin warm/dry/pink. Dr. Miguel discharged the patient home with prescription given. No IV cannula in situ. Patient left ER vitally stable and ambulatory. No valuables left in the patient's room. Patient states feeling better. Vital Signs: 21:35 BP 114 / 94; Pulse 123; Resp 16; Temp 98.4; Pulse Ox 100% on R/A; Weight 69.85 kg; la1 Height 5 ft. 6 in. (167.64 cm); Pain 10/10; 21:36 Pulse 117; la1 21:45 BP 136 / 95; Pulse 110; Resp 15 S; Pulse Ox 99% on R/A; cc3 21:35 Body Mass Index 24.86 (69.85 kg, 167.64 cm) la1 ED Course: 21:32 Patient arrived in ED. es 21:32 Corky Hicks MD is Private Physician. es 21:34 Arm band placed on left wrist. la1 21:36 Triage completed. la1 21:37 Bora Miguel MD is Attending Physician. rn 21:37 Donna Pandya is Primary Nurse. cc3 21:37 Patient has correct armband on for positive identification. Bed in low position. Call cc3 light in reach. Side rails up X 1. Pulse ox on. NIBP on. 22:00 No provider procedures requiring assistance completed. Patient did not have IV access cc3 during this emergency room visit. Administered Medications: 21:49 Drug: [place] 10 mg-325 mg 1 tabs {Note: RASS 0.} Route: PO; cc3 22:00 Follow up: Response: No adverse reaction; Pain is decreased; RASS: Alert and Calm (0) cc3 Outcome: 21:46 Discharge ordered by . rn 22:00 Patient left the ED. cc3 22:00 Discharged to home ambulatory. cc3 22:00 Condition: stable 22:00 Discharge instructions given to patient, Instructed on discharge instructions, follow up and referral plans. medication usage, Demonstrated understanding of instructions, follow-up care, medications, Prescriptions given X 1. Signatures: Franchesca Walker Roman, MD MD rn Attema, Lee, RN RN la1 Donna Pandya cc3
[2019-06-02 22:21] VITALS: BP 114/94; TEMP 98.4; O2SAT 100
== END 2019-06-02 22:00 | disposition home or self-care (01) ==
LOC: ER 21:29
DX: K02.9 Dental caries, unspecified (principal); E11.9 Type 2 diabetes mellitus without complications
CPT/HCPCS: 99283

== ENCOUNTER 2019-08-22 13:24 | Emergency (ER) | payer SELFPAY ==
--- NOTE | 2019-08-22 14:38 | ER ---
Nurse's Notes [facility] Name: Denis Arroyo Age: 28 yrs Sex: Female : 1990 Arrival Date: 08/22/2019 Time: 13:29 Bed 12 Private MD: Diagnosis: Fever, unspecified;Streptococcal tonsillitis;Malaise and fatigue;Type 1 diabetes mellitus Presentation: 08/22 13:42 Presenting complaint: Patient states: Flu like symptoms in the last 3 days. Reports ca1 fever, cough and congestion. Transition of care: patient was not received from another setting of care. Onset of symptoms was August 22, 2019. Risk Assessment: Do you want to hurt yourself or someone else? Patient reports no desire to harm self or others. Initial Sepsis Screen: Does the patient meet any 2 criteria? No. Patient's initial sepsis screen is negative. Does the patient have a suspected source of infection? No. Patient's initial sepsis screen is negative. Care prior to arrival: None. 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 - Social history:: Smoking status: Patient/guardian denies using tobacco. - Ebola Screening: : Patient negative for fever greater than or equal to 101.5 degrees Fahrenheit, and additional compatible Ebola Virus Disease symptoms Patient denies exposure to infectious person Patient denies travel to an Ebola-affected area in the 21 days before illness onset No symptoms or risks identified at this time. - Family history:: not pertinent. Screenin:50 Abuse screen: Denies threats or abuse. Denies injuries from another. Nutritional ss screening: No deficits noted. Tuberculosis screening: Never had TB. Fall Risk None identified. Assessment: 13:50 General: Appears uncomfortable, ill, slender, Behavior is calm, cooperative, ss appropriate for age. Pain: Complains of pain in generlized body aches Pain currently is 6 out of 10 on a pain scale. Quality of pain is described as aching, Pain began 2-3 days ago. Is continuous. Neuro: Level of Consciousness is awake, alert, obeys commands, Oriented to person, place, time, situation. Respiratory: Airway is patent Respiratory effort is even, unlabored, Respiratory pattern is regular, symmetrical. GI: Patient currently denies diarrhea, nausea, vomiting. EENT: Nares are clear. Derm: Skin is intact, is healthy with good turgor, Skin is dry, Skin is pink, warm \T\ dry. normal. Vital Signs: 13:44 BP 121 / 75; Pulse 111; Resp 15 S; Temp 97.1(TE); Pulse Ox 100% on R/A; Weight 69.85 kg ca1 (R); Height 5 ft. 6 in. (167.64 cm) (R); Pain 6/10; 13:44 Body Mass Index 24.86 (69.85 kg, 167.64 cm) ca1 ED Course: 13:29 Patient arrived in ED. rg4 13:43 Triage completed. ca1 13:44 Arm band placed on right wrist. ca1 13:45 Flu and/or RSV swab sent to lab. ca1 13:50 Patient has correct armband on for positive identification. Bed in low position. Call ss light in reach. 14:05 Girma Abdullahi MD is Attending Physician. [facility] 14:36 Lucia Camejo, NURIA is Primary Nurse. 14:51 No provider procedures requiring assistance completed. Patient did not have IV access ss during this emergency room visit. Administered Medications: 14:49 Drug: Bicillin L-A 1.2 million units Route: IM; Site: right gluteus; ss 15:11 Follow up: Response: No adverse reaction ss 14:49 Drug: Tylenol 650 mg Route: PO; ss 14:50 Follow up: Response: Medication administered at discharge. ss Outcome: 14:36 Discharge ordered by . [facility] 14:51 Condition: good ss 15:11 Discharged to home ambulatory. ss 15:11 Discharge instructions given to patient, Instructed on discharge instructions, follow up and referral plans. medication usage, Demonstrated understanding of instructions, follow-up care, medications, Prescriptions given X 1. 15:11 Patient left the ED. ss Signatures: Girma Abdullahi MD MD cha Smirch, Shelby, RN RN Renato, Ruth Ann rg4 Acob, Susie, RN RN ca1
--- NOTE | 2019-08-22 14:39 | EDPHYS ---
Physician Documentation [facility] Name: Denis Arroyo Age: 28 yrs Sex: Female : 1990 Arrival Date: 08/22/2019 Time: 13:29 Bed 12 Private MD: ED Physician Girma Abdullahi HPI: 08/22 14:31 This 28 yrs old Black Female presents to ER via Ambulatory with complaints of Flu chadd Symptoms. 14:31 The patient or guardian reports cough, described as mild. Onset: The symptoms/episode chadd began/occurred 2 day(s) ago. 14:32 The patient reports fever, that was measured at 100 degrees Fahrenheit. Modifying chadd factors: there are no obvious modifying factors. Severity of symptoms: At their worst the symptoms were mild in the emergency department the symptoms are unchanged. 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 - Social history:: Smoking status: Patient/guardian denies using tobacco. - Ebola Screening: : Patient negative for fever greater than or equal to 101.5 degrees Fahrenheit, and additional compatible Ebola Virus Disease symptoms Patient denies exposure to infectious person Patient denies travel to an Ebola-affected area in the 21 days before illness onset No symptoms or risks identified at this time. - Family history:: not pertinent. ROS: 14:32 Constitutional: Negative for fever, chills, and weight loss, Eyes: Negative for injury, chadd pain, redness, and discharge, Neck: Negative for injury, pain, and swelling, Cardiovascular: Negative for chest pain, palpitations, and edema, Abdomen/GI: Negative for abdominal pain, nausea, vomiting, diarrhea, and constipation, Back: Negative for injury and pain, : Negative for injury, bleeding, discharge, and swelling, MS/Extremity: Negative for injury and deformity, Skin: Negative for injury, rash, and discoloration, Neuro: Negative for headache, weakness, numbness, tingling, and seizure, Psych: Negative for depression, anxiety, suicide ideation, homicidal ideation, and hallucinations, Allergy/Immunology: Negative for hives, rash, and allergies, Endocrine: Negative for neck swelling, polydipsia, polyuria, polyphagia, and marked weight changes, Hematologic/Lymphatic: Negative for swollen nodes, abnormal bleeding, and unusual bruising. 14:32 ENT: Positive for rhinorrhea, sinus congestion, sore throat. 14:32 Respiratory: Positive for cough. Exam: 14:32 Constitutional: This is a well developed, well nourished patient who is awake, alert, chadd and in no acute distress. Head/Face: Normocephalic, atraumatic. Eyes: Pupils equal round and reactive to light, extra-ocular motions intact. Lids and lashes normal. Conjunctiva and sclera are non-icteric and not injected. Cornea within normal limits. Periorbital areas with no swelling, redness, or edema. Neck: Trachea midline, no thyromegaly or masses palpated, and no cervical lymphadenopathy. Supple, full range of motion without nuchal rigidity, or vertebral point tenderness. No Meningismus. Chest/axilla: Normal chest wall appearance and motion. Nontender with no deformity. No lesions are appreciated. Cardiovascular: Regular rate and rhythm with a normal S1 and S2. No gallops, murmurs, or rubs. Normal PMI, no JVD. No pulse deficits. Respiratory: Lungs have equal breath sounds bilaterally, clear to auscultation and percussion. No rales, rhonchi or wheezes noted. No increased work of breathing, no retractions or nasal flaring. Abdomen/GI: Soft, non-tender, with normal bowel sounds. No distension or tympany. No guarding or rebound. No evidence of tenderness throughout. Back: No spinal tenderness. No costovertebral tenderness. Full range of motion. Skin: Warm, dry with normal turgor. Normal color with no rashes, no lesions, and no evidence of cellulitis. MS/ Extremity: Pulses equal, no cyanosis. Neurovascular intact. Full, normal range of motion. Neuro: Awake and alert, GCS 15, oriented to person, place, time, and situation. Cranial nerves II-XII grossly intact. Motor strength 5/5 in all extremities. Sensory grossly intact. Cerebellar exam normal. Normal gait. Psych: Awake, alert, with orientation to person, place and time. Behavior, mood, and affect are within normal limits. 14:32 ENT: Posterior pharynx: Airway: no evidence of obstruction, Tonsils: with erythema, Uvula: midline, non-edematous, erythema, swelling, that is mild, erythema, that is mild, exudate, is not appreciated, peritonsillar mass, is not appreciated, pooling of secretions, is not appreciated. Vital Signs: 13:44 BP 121 / 75; Pulse 111; Resp 15 S; Temp 97.1(TE); Pulse Ox 100% on R/A; Weight 69.85 kg ca1 (R); Height 5 ft. 6 in. (167.64 cm) (R); Pain 6/10; 13:44 Body Mass Index 24.86 (69.85 kg, 167.64 cm) ca1 MDM: 14:05 Patient medically screened. [facility] 14:34 Data reviewed: vital signs, nurses notes, lab test result(s). [facility] 08/22 13:45 Order name: Flu [facility] 08/22 13:51 Order name: Strep; Complete Time: 14:31 ms 08/22 14:35 Order name: Blood Glucose Level; Complete Time: 14:49 [facility] 08/22 14:55 Order name: Glucose, Ancillary Testing [facility] 08/22 14:35 Order name: PO challenge; Complete Time: 14:36 [facility] Administered Medications: 14:49 Drug: Bicillin L-A 1.2 million units Route: IM; Site: right gluteus; ss 15:11 Follow up: Response: No adverse reaction 14:49 Drug: Tylenol 650 mg Route: PO; ss 14:50 Follow up: Response: Medication administered at discharge. Disposition: 08/22/19 14:36 Discharged to Home. Impression: Fever, unspecified, Streptococcal tonsillitis, Malaise and fatigue, Type 1 diabetes mellitus. - Condition is Stable. - Discharge Instructions: Fever, Adult, Strep Throat, Weakness, Strep Throat, [id number], Weakness, Jnek-[id number], Fever, Adult, [id number], Type 1 Diabetes Mellitus, Self Care, Adult, Type 1 Diabetes Mellitus, Self Care, Adult, [id number]-[id number]. - Prescriptions for Tamiflu 75 mg Oral Capsule - take 1 tablet by ORAL route every 12 hours for 5 days; 10 tablet. - Medication Reconciliation Form, Thank You Letter, Antibiotic Education, Prescription Opioid Use, Work release form form. - Follow up: Private Physician; When: 2 - 3 days; Reason: Recheck today's complaints, Continuance of care, Re-evaluation by your physician. - Problem is new. - Symptoms have improved. Signatures: Dispatcher [employer] EDAR Girma Abdullahi MD MD cha Smirch, Shelby, RN RN ss Susie Benitez RN RN ca1 Corrections: (The following items were deleted from the chart) 14:37 14:36 08/22/2019 14:36 Discharged to Home. Impression: Fever, unspecified; chadd Streptococcal tonsillitis; Malaise and fatigue. Condition is Stable. Forms are Medication Reconciliation Form, Thank You Letter, Antibiotic Education, Prescription Opioid Use. Follow up: Private Physician; When: 2 - 3 days; Reason: Recheck today's complaints, Continuance of care, Re-evaluation by your physician. Problem is new. Symptoms have improved. [facility] 15:11 14:37 08/22/2019 14:36 Discharged to Home. Impression: Fever, unspecified; ss Streptococcal tonsillitis; Malaise and fatigue; Type 1 diabetes mellitus. Condition is Stable. Discharge Instructions: Fever, Adult, Strep Throat, Weakness, Strep Throat, [id number]-[id number], Weakness, [id number]-[id number], Fever, Adult, Mhoi-ta-Nhah, Type 1 Diabetes Mellitus, Self Care, Adult, Type 1 Diabetes Mellitus, Self Care, Adult, Yvdr-[id number]. Prescriptions for Tamiflu 75 mg Oral Capsule - take 1 tablet by ORAL route every 12 hours for 5 days; 10 tablet. and Forms are Medication Reconciliation Form, Thank You Letter, Antibiotic Education, Prescription Opioid Use. Follow up: Private Physician; When: 2 - 3 days; Reason: Recheck today's complaints, Continuance of care, Re-evaluation by your physician. Problem is new. Symptoms have improved. chadd
[2019-08-22] MEDS ORDERED: ACETAMINOPHEN 325 MG TABLET ONE (14:47)
[2019-08-22] MEDS ORDERED: PEN G BENZ LA 1.2MU/2ML SYRINGE IM ONE (14:48)
[2019-08-22 15:22] VITALS: BP 121/75; TEMP 97.1; O2SAT 100
== END 2019-08-22 15:11 | disposition home or self-care (01) ==
LOC: ER 13:24
DX: J03.00 Acute streptococcal tonsillitis, unspecified (principal); R50.9 Fever, unspecified; R53.81 Other malaise; R53.83 Other fatigue; E10.9 Type 1 diabetes mellitus without complications; Z79.4 Long term (current) use of insulin; Z88.6 Allergy status to analgesic agent
CPT/HCPCS: 82947; 87081; 87804; 96372; 99283; J0561

== ENCOUNTER 2019-09-14 17:05 | Emergency (ER) | payer SELFPAY ==
[2019-09-14] MEDS ORDERED: NS KCL 20MEQ 1,000 ML IV ONE (19:15)
[2019-09-14] MEDS ORDERED: MORPHINE 2 MG/ML SYR ONE (19:53)
[2019-09-14] MEDS ORDERED: ONDANSETRON 4 MG/2 ML VIAL ONE (19:53)
[2019-09-14] MEDS ORDERED: NA CHLORIDE 0.9% 1,000 ML ONE (19:53)
[2019-09-14 20:05] LABS: Urine Blood 1+ (NEG); Urine Glucose 2+ (NEG); Urine Protein 3+ (NEG); Urine pH 5.5 (5.0-7.0)
--- NOTE | 2019-09-14 20:50 | RAD REPORT ---
EXAM DESCRIPTION: RAD - Chest Single View - 09/14/2019 7:55 pm CLINICAL HISTORY: COUGH COMPARISON: No comparisons TECHNIQUE: AP portable chest image was obtained 09/14/2019 7:55 pm . FINDINGS: Lungs are clear. Heart and vasculature are normal. No measurable pleural effusion and no p neumothorax. No acute bony abnormality seen. No acute aortic findings suspected. IMPRESSION: No acute cardiopulmonary process.
--- NOTE | 2019-09-14 20:50 | RAD REPORT ---
EXAM DESCRIPTION: US - Extrem Venous W Compress Jeffrey - 09/14/2019 8:22 pm CLINICAL HISTORY: Bilateral leg pain and swelling COMPARISON: None. TECHNIQUE: Real-time sonographic evaluation of the bilateral lower extremity common femoral, superfi cial femoral, popliteal and posterior tibial veins was performed. FINDINGS: Normal compressibility, flow augmentation, phasic flow and spontaneous flow are identified in the left and right lower extremity common femoral, superficial femoral, popliteal and posterior t ibial veins. No intraluminal filling defects seen. IMPRESSION: No DVT in either lower extremity.
[2019-09-14 21:49] LABS: Absolute Lymphocytes (CBC) 2.4 K/uL (0.7-4.9); Basophils % 2.2 % (0-1.3); Hematocrit 35.8 % (36.0-45.0); Lymphocytes % 35.8 % (15.3-44.8); MPV 8.3 fL (7.6-11.3); RBC Red Blood Cell Count 4.54 M/uL (3.86-4.86)
[2019-09-14 22:03] LABS: Protime INR 0.95
[2019-09-14 22:18] LABS: AST/SGOT 16 U/L (15-37); Albumin 1.8 g/dL (3.4-5.0); Alkaline Phosphatase 55 U/L (45-117); BUN Blood Urea Nitrogen 14 mg/dL (7-18); Bicarbonate 27 mmol/L (21-32); Bilirubin Direct < 0.1 mg/dL (0-0.2); Bilirubin Total 0.1 mg/dL (0.2-1.0); Glucose Level 308 mg/dL (74-106); Magnesium 2.2 mg/dL (1.8-2.4); NT PRO-BNP 179 pg/mL (<125); Potassium 4.3 mmol/L (3.5-5.1); Sodium Level 138 mmol/L (136-145); Troponin (Emerg Dept Use Only) < 0.02 ng/mL (0.0-0.045)
--- NOTE | 2019-09-14 22:35 | ER ---
Nurse's Notes [facility] Name: Denis Arroyo Age: 28 yrs Sex: Female : 1990 Arrival Date: 09/14/2019 Time: 17:06 Bed 28 Private MD: Diagnosis: Essential (primary) hypertension;Edema, unspecified;Type 1 diabetes mellitus Presentation: 09/14 17:48 Presenting complaint: Patient states: Bilateral leg swelling from feet to thighs. ca1 Started about a week ago, went down then swelled up again. Denies history of swelling. Pt has IDDM. Denies fever. BGL 342. Transition of care: patient was not received from another setting of care. Onset of symptoms was September 14, 2019. Risk Assessment: Do you want to hurt yourself or someone else? Patient reports no desire to harm self or others. Initial Sepsis Screen: Does the patient meet any 2 criteria? No. Patient's initial sepsis screen is negative. Does the patient have a suspected source of infection? No. Patient's initial sepsis screen is negative. Care prior to arrival: None. 17:48 Method Of Arrival: Ambulatory ca1 17:48 Acuity: SALINAS 3 ca1 Triage Assessment: 18:10 General: Appears in no apparent distress. General: Behavior is calm, cooperative. Pain: ls4 Complains of pain in left leg and right leg. Neuro: No deficits noted. Cardiovascular: No deficits noted. Cardiovascular: Reports None Capillary refill < 3 seconds Patient's skin is warm and dry. Edema is 2+ to left midcalf, left ankle, left foot, left toes, right midcalf, right ankle, right foot and right toes. Respiratory: No deficits noted. GI: No deficits noted. 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 - Coronavirus screen:: The patient has NOT traveled to [place], [place], or [place] in the past 14 days. The patient has NOT had contact with known/suspected case of Coronavirus?. - Social history:: Smoking status: Patient denies any tobacco usage or history of. - Family history:: not pertinent. - Ebola Screening: : Patient negative for fever greater than or equal to 101.5 degrees Fahrenheit, and additional compatible Ebola Virus Disease symptoms Patient denies exposure to infectious person Patient denies travel to an Ebola-affected area in the 21 days before illness onset No symptoms or risks identified at this time. Screenin:00 Abuse screen: Denies threats or abuse. Denies injuries from another. Nutritional ls4 screening: No deficits noted. Tuberculosis screening: No symptoms or risk factors identified. Fall Risk None identified. Assessment: 22:28 General: see triage assessment. Neuro: No deficits noted. Respiratory: No deficits ls4 noted. Respiratory: Airway is patent Respiratory effort is even, unlabored, Respiratory pattern is regular, Breath sounds are clear bilaterally. Vital Signs: 17:56 BP 148 / 96; Pulse 114; Resp 18 S; Temp 98.7(O); Pulse Ox 100% on R/A; Weight 77.11 kg ca1 (R); Height 5 ft. 6 in. (167.64 cm) (R); 18:00 BP 144 / 78; Pulse 94; Resp 14; Pulse Ox 99% on R/A; Pain 7/10; ls4 20:00 BP 129 / 88; Pulse 108; Resp 14; Pulse Ox 99% on R/A; Pain 3/10; ls4 21:00 BP 144 / 95; Pulse 113; Resp 14; Pulse Ox 99% on R/A; Pain 3/10; ls4 22:00 BP 141 / 102; Pulse 110; Resp 14; Temp 98.4; Pulse Ox 99% on R/A; Pain 3/10; ls4 23:00 BP 129 / 88; Pulse 100; Resp 14; Temp 98.0; Pulse Ox 99% on R/A; Pain 3/10; ls4 17:56 Body Mass Index 27.44 (77.11 kg, 167.64 cm) ca1 ED Course: 17:06 Patient arrived in ED. as 17:55 Triage completed. ca1 17:56 Arm band placed on right wrist. ca1 18:00 Patient has correct armband on for positive identification. Placed in gown. Bed in low ls4 position. Call light in reach. Side rails up X2. shelter monitor on. Pulse ox on. NIBP on. Warm blanket given. Verbal reassurance given. 18:00 No provider procedures requiring assistance completed. Initial lab(s) drawn, by me, ls4 sent to lab. Urine collected:. Inserted saline lock: 20 gauge in left antecubital area, using aseptic technique. Blood collected. 18:50 Katty Monaco RN is Primary Nurse. ls4 18:50 Girma Abdullahi MD is Attending Physician. chadd 19:55 XRAY Chest (1 view) In Process Unspecified. EDMS 20:22 US Extremity Venous W Compression Jeffrey In Process Unspecified. EDMS 22:34 Kelvin Cook MD is Referral Physician. chadd 23:45 IV discontinued, intact, bleeding controlled, No redness/swelling at site. Pressure ls4 dressing applied. Administered Medications: 20:02 Drug: Zofran 4 mg Route: IVP; Site: left antecubital; ls4 20:30 Follow up: Response: No adverse reaction; Marked relief of symptoms ls4 20:02 Drug: morphine 2 mg Route: IVP; Site: left antecubital; ls4 20:30 Follow up: Response: No adverse reaction; Marked relief of symptoms ls4 20:13 Drug: NS 0.9% 1000 ml Route: IV; Rate: 75 ml/hr; Site: left antecubital; ls4 23:42 Follow up: IV Status: Completed infusion; IV Intake: 225ml ls4 23:10 Drug: Insulin Regular Human 8 units {Co-Signature: vc (Carola Rosa RN).} Route: ls4 IVP; Site: left antecubital; 23:34 Follow up: Response: No adverse reaction ls4 23:34 Not Given (Patient Refused): Potassium Effervescent Tablet 25 mEq PO once; dissolve in ls4 4 ounces of water or juice 23:40 Not Given (Patient Refused): Lasix 20 mg IVP once ls4 Intake: 23:42 IV: 225ml; Total: 225ml. ls4 Outcome: 22:35 Discharge ordered by . chadd 23:44 Discharged to home ambulatory, with family. ls4 23:44 Condition: good 23:44 Discharge instructions given to patient, family, Instructed on discharge instructions, follow up and referral plans. medication usage, safety practices, Demonstrated understanding of instructions, follow-up care, medications, Prescriptions given X 3. 23:51 Patient left the ED. ls4 Signatures: Dispatcher [employer] EDGirma Vera MD MD cha Martinez, Amelia as Stewart, Lisa, RN RN ls4 Susie Benitez RN RN ca1 Carola Rosa RN vc
--- NOTE | 2019-09-14 22:36 | EDPHYS ---
Physician Documentation [facility] Name: Denis Arroyo Age: 28 yrs Sex: Female : 1990 Arrival Date: 09/14/2019 Time: 17:06 Bed 28 Private MD: ED Physician Girma Abdullahi HPI: 09/14 19:22 This 28 yrs old Black Female presents to ER via Ambulatory with complaints of Leg chadd Swelling. 19:22 The patient presents with decreased range of motion, pain, swelling, tenderness. The chadd complaints affect the right leg and left leg. Context: The problem was sustained at an unknown site. Onset: The symptoms/episode began/occurred 14 day(s) ago. Modifying factors: The symptoms are alleviated by nothing. the symptoms are aggravated by movement, weight bearing. Associated signs and symptoms: The patient has no apparent associated signs or symptoms. Severity of symptoms: At their worst the symptoms were mild, in the emergency department the symptoms are unchanged. The patient has not experienced similar symptoms in the past. VASC TECH: 17:56 LMP 08/09/2019 ca1 Historical: - Allergies: 17:56 Ibuprofen; ca1 - Home Meds: 17:56 Novolog Sub-Q [Active]; Levemir subcutaneous [Active]; ca1 - PMHx: 17:56 Diabetes - IDDM; ca1 - PSHx: 17:56 None; ca1 - Immunization history:: Adult Immunizations up to date, Flu vaccine is not up to date. - Coronavirus screen:: The patient has NOT traveled to [place], [place], or [place] in the past 14 days. The patient has NOT had contact with known/suspected case of Coronavirus?. - Social history:: Smoking status: Patient denies any tobacco usage or history of. - Family history:: not pertinent. - Ebola Screening: : Patient negative for fever greater than or equal to 101.5 degrees Fahrenheit, and additional compatible Ebola Virus Disease symptoms Patient denies exposure to infectious person Patient denies travel to an Ebola-affected area in the 21 days before illness onset No symptoms or risks identified at this time. ROS: 19:22 Constitutional: Negative for fever, chills, and weight loss, Eyes: Negative for injury, chadd pain, redness, and discharge, ENT: Negative for injury, pain, and discharge, Neck: Negative for injury, pain, and swelling, Cardiovascular: Negative for chest pain, palpitations, and edema, Respiratory: Negative for shortness of breath, cough, wheezing, and pleuritic chest pain, Abdomen/GI: Negative for abdominal pain, nausea, vomiting, diarrhea, and constipation, Back: Negative for injury and pain, : Negative for injury, bleeding, discharge, and swelling, Skin: Negative for injury, rash, and discoloration, Neuro: Negative for headache, weakness, numbness, tingling, and seizure, Psych: Negative for depression, anxiety, suicide ideation, homicidal ideation, and hallucinations, Allergy/Immunology: Negative for hives, rash, and allergies, Endocrine: Negative for neck swelling, polydipsia, polyuria, polyphagia, and marked weight changes, Hematologic/Lymphatic: Negative for swollen nodes, abnormal bleeding, and unusual bruising. 19:22 MS/extremity: Positive for pain, swelling, tenderness, of the right leg and left leg. Exam: 19:22 Constitutional: This is a well developed, well nourished patient who is awake, alert, chadd and in no acute distress. Head/Face: Normocephalic, atraumatic. Eyes: Pupils equal round and reactive to light, extra-ocular motions intact. Lids and lashes normal. Conjunctiva and sclera are non-icteric and not injected. Cornea within normal limits. Periorbital areas with no swelling, redness, or edema. ENT: Nares patent. No nasal discharge, no septal abnormalities noted. Tympanic membranes are normal and external auditory canals are clear. Oropharynx with no redness, swelling, or masses, exudates, or evidence of obstruction, uvula midline. Mucous membranes moist. Neck: Trachea midline, no thyromegaly or masses palpated, and no cervical lymphadenopathy. Supple, full range of motion without nuchal rigidity, or vertebral point tenderness. No Meningismus. Chest/axilla: Normal chest wall appearance and motion. Nontender with no deformity. No lesions are appreciated. Cardiovascular: Regular rate and rhythm with a normal S1 and S2. No gallops, murmurs, or rubs. Normal PMI, no JVD. No pulse deficits. Respiratory: Lungs have equal breath sounds bilaterally, clear to auscultation and percussion. No rales, rhonchi or wheezes noted. No increased work of breathing, no retractions or nasal flaring. Abdomen/GI: Soft, non-tender, with normal bowel sounds. No distension or tympany. No guarding or rebound. No evidence of tenderness throughout. Back: No spinal tenderness. No costovertebral tenderness. Full range of motion. Skin: Warm, dry with normal turgor. Normal color with no rashes, no lesions, and no evidence of cellulitis. Neuro: Awake and alert, GCS 15, oriented to person, place, time, and situation. Cranial nerves II-XII grossly intact. Motor strength 5/5 in all extremities. Sensory grossly intact. Cerebellar exam normal. Normal gait. Psych: Awake, alert, with orientation to person, place and time. Behavior, mood, and affect are within normal limits. 19:22 Musculoskeletal/extremity: ROM: full active range of motion, full passive range of motion, Circulation is intact in all extremities. Sensation intact. Compartment Syndrome exam of affected extremity: is normal. DVT Exam: negative Homans' sign noted on exam, no appreciated bluish discoloration, no erythema, no increased warmth, pain, swelling, tenderness. Vital Signs: 17:56 BP 148 / 96; Pulse 114; Resp 18 S; Temp 98.7(O); Pulse Ox 100% on R/A; Weight 77.11 kg ca1 (R); Height 5 ft. 6 in. (167.64 cm) (R); 18:00 BP 144 / 78; Pulse 94; Resp 14; Pulse Ox 99% on R/A; Pain 7/10; ls4 20:00 BP 129 / 88; Pulse 108; Resp 14; Pulse Ox 99% on R/A; Pain 3/10; ls4 21:00 BP 144 / 95; Pulse 113; Resp 14; Pulse Ox 99% on R/A; Pain 3/10; ls4 22:00 BP 141 / 102; Pulse 110; Resp 14; Temp 98.4; Pulse Ox 99% on R/A; Pain 3/10; ls4 23:00 BP 129 / 88; Pulse 100; Resp 14; Temp 98.0; Pulse Ox 99% on R/A; Pain 3/10; ls4 17:56 Body Mass Index 27.44 (77.11 kg, 167.64 cm) ca1 MDM: 18:50 Patient medically screened. [facility] 19:24 Data reviewed: vital signs, nurses notes, lab test result(s), EKG, radiologic studies, [facility] doppler, plain films. 09/14 18:05 Order name: Glucose, Ancillary Testing [facility] 09/14 18:48 Order name: Urine Dipstick--Ancillary (enter results); Complete Time: 20:57 09/14 18:48 Order name: Urine --Ancillary (enter results) 09/14 19:21 Order name: Basic Metabolic Panel [facility] 09/14 19:21 Order name: CBC with Diff; Complete Time: 22:09 [facility] 09/14 19:21 Order name: LFT's [facility] 09/14 19:21 Order name: Magnesium [facility] 09/14 19:21 Order name: NT PRO-BNP [facility] 09/14 19:21 Order name: PT-INR; Complete Time: 22:09 [facility] 09/14 19:21 Order name: Troponin (emerg Dept Use Only) [facility] 09/14 19:21 Order name: XRAY Chest (1 view); Complete Time: 20:57 [facility] 09/14 22:19 Order name: Thyroid Stimulating Hormone [facility] 09/14 22:40 Order name: T4 Free [facility] 09/14 19:21 Order name: EKG; Complete Time: 19:22 [facility] 09/14 19:21 Order name: Cardiac monitoring; Complete Time: 19:45 [facility] 09/14 19:21 Order name: EKG - Nurse/Tech; Complete Time: 19:45 [facility] 09/14 19:21 Order name: IV Saline Lock; Complete Time: 19:45 [facility] 09/14 19:21 Order name: Labs collected and sent; Complete Time: 19:45 [facility] 09/14 19:21 Order name: O2 Per Protocol; Complete Time: 19:45 [facility] 09/14 19:21 Order name: O2 Sat Monitoring; Complete Time: 19:45 [facility] 09/14 19:21 Order name: US Extremity Venous W Compression Jeffrey; Complete Time: 20:57 [facility] Administered Medications: 20:02 Drug: Zofran 4 mg Route: IVP; Site: left antecubital; ls4 20:30 Follow up: Response: No adverse reaction; Marked relief of symptoms ls4 20:02 Drug: morphine 2 mg Route: IVP; Site: left antecubital; ls4 20:30 Follow up: Response: No adverse reaction; Marked relief of symptoms ls4 20:13 Drug: NS 0.9% 1000 ml Route: IV; Rate: 75 ml/hr; Site: left antecubital; ls4 23:42 Follow up: IV Status: Completed infusion; IV Intake: 225ml ls4 23:10 Drug: Insulin Regular Human 8 units {Co-Signature: vc (Carola Rosa RN).} Route: ls4 IVP; Site: left antecubital; 23:34 Follow up: Response: No adverse reaction ls4 23:34 Not Given (Patient Refused): Potassium Effervescent Tablet 25 mEq PO once; dissolve in ls4 4 ounces of water or juice 23:40 Not Given (Patient Refused): Lasix 20 mg IVP once ls4 Disposition: 09/14/19 22:35 Discharged to Home. Impression: Essential (primary) hypertension, Edema, unspecified, Type 1 diabetes mellitus. - Condition is Stable. - Discharge Instructions: Type 1 Diabetes Mellitus, Diagnosis, Adult, Edema, Hypertension, Hypertension, [id number], Edema, [id number], How to Take Your Blood Pressure, [id number], Managing Your Hypertension, Type 1 Diabetes Mellitus, Self Care, Adult, Peripheral Edema. - Prescriptions for Lasix 20 mg Oral Tablet - take 1 tablet by ORAL route once daily; 10 tablet. Potassium Chloride 20 meq Oral Packet - take 1 packet by ORAL route once daily 1 packet in 6 (six) ounces of water or juice; Take after meal; 10 packet. Lisinopril 10 mg Oral Tablet - take 1 tablet by ORAL route once daily; 20 tablet. - Medication Reconciliation Form, Thank You Letter, Antibiotic Education, Prescription Opioid Use form. - Follow up: Private Physician; When: 2 - 3 days; Reason: Recheck today's complaints, Continuance of care, Re-evaluation by your physician. Follow up: Kelvin Cook MD; When: Tomorrow; Reason: Recheck today's complaints, Re-evaluation by your physician. - Problem is new. - Symptoms have improved. Signatures: Dispatcher [employer] EDGirma Vera MD MD cha Stewart, Lisa, RN RN ls4 Susie Benitez RN RN ca1 Carola Rosa RN, vc Corrections: (The following items were deleted from the chart) 22:19 22:14 THYROID STIMULAT HORMONE+C.LAB.BRZ ordered. EDGA EDMS 23:51 22:35 09/14/2019 22:35 Discharged to Home. Impression: Essential (primary) ls4 hypertension; Edema, unspecified; Type 1 diabetes mellitus. Condition is Stable. Forms are Medication Reconciliation Form, Thank You Letter, Antibiotic Education, Prescription Opioid Use. Follow up: Private Physician; When: 2 - 3 days; Reason: Recheck today's complaints, Continuance of care, Re-evaluation by your physician. Follow up: Kelvin Cook; When: Tomorrow; Reason: Recheck today's complaints, Re-evaluation by your physician. Problem is new. Symptoms have improved. chadd
[2019-09-14 22:38] LABS: ALT/SGPT 27 U/L (12-78)
[2019-09-14] MEDS ORDERED: INSULIN -REGULAR HUMAN 50 UNIT/0.5 ML ML ONE (23:17)
[2019-09-14 23:59] VITALS: O2SAT 99
[2019-09-15 00:31] VITALS: BP 129/88; TEMP 98
--- NOTE | 2019-09-15 06:39 | EKG ---
Test Date: 2019-09-14 Test Time: 19:39:25 Exchange Mechanic: AKOSUA MEASUREMENT RESULTS: Intervals: Rate: 112 [place]: 120 QRSD: 70 QT: 316 QTc: 431 Green: P: 47 [place]: 120 QRS: 33 T: 39 INTERPRETIVE STATEMENTS: Sinus tachycardia Cannot rule out Anterior infarct, age undetermined Abnormal ECG No previous ECG available for comparison Electronically Signed On 09-15-19 06:38:24 BOILER ENGINEER by Francisco York
== END 2019-09-14 23:51 | disposition home or self-care (01) ==
LOC: ER 17:05
DX: R60.9 Edema, unspecified (principal); I10 Essential (primary) hypertension; E10.8 Type 1 diabetes mellitus with unspecified complications
CPT/HCPCS: 36415; 71045; 80048; 80076; 81003; 81025; 82947; 83735; 83880; 84439; 84443; 84484; 85025; 85610; 93005; 93970; 96361; 96374; 96375; 99284; J2270; J2405; J7030

== ENCOUNTER 2019-09-22 02:44 | Inpatient (IN) | payer SELFPAY ==
--- NOTE | 2019-09-22 04:13 | ER ---
Nurse's Notes [facility] Name: Denis Arroyo Age: 28 yrs Sex: Female : 1990 Arrival Date: 09/22/2019 Time: 02:46 Bed 8 Private MD: Diagnosis: Essential (primary) hypertension;Chest pain, unspecified;Edema, unspecified;Proteinuria;Type 1 diabetes mellitus;Tachycardia, unspecified Presentation: 09/22 02:45 Presenting complaint: Patient states: that she was at work and started to have chest fc pain around 0115 to the left side of her chest. Positive cough but denies any SOB, N/V. Her heart rate was 115 and her bp was 159/85. Transition of care: patient was not received from another setting of care. Onset of symptoms was September 22, 2019 at 01:15. Risk Assessment: Do you want to hurt yourself or someone else? Patient reports no desire to harm self or others. Initial Sepsis Screen: Does the patient meet any 2 criteria? HR > 90 bpm. No. Patient's initial sepsis screen is negative. Does the patient have a suspected source of infection? No. Patient's initial sepsis screen is negative. Care prior to arrival: None. 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 - Coronavirus screen:: The patient has NOT traveled to [place], [place], or [place] in the past 14 days. The patient has NOT had contact with known/suspected case of Coronavirus?. - Social history:: Smoking status: Patient denies any tobacco usage or history of. Patient uses alcohol, occasionally. Patient/guardian denies using street drugs. - Family history:: not pertinent. - Ebola Screening: : Patient negative for fever greater than or equal to 101.5 degrees Fahrenheit, and additional compatible Ebola Virus Disease symptoms Patient denies exposure to infectious person Patient denies travel to an Ebola-affected area in the 21 days before illness onset. Screenin:45 Abuse screen: Denies threats or abuse. Nutritional screening: No deficits noted. fc Tuberculosis screening: No symptoms or risk factors identified. Fall Risk None identified. Assessment: 03:04 General: Appears in no apparent distress. Behavior is calm, cooperative, appropriate lp1 for age. Pain: Complains of pain in chest Pain does not radiate. Pain currently is 6 out of 10 on a pain scale. Quality of pain is described as pressure, Pain began gradually, Is continuous, Also complains of no other associated symptoms. Neuro: Level of Consciousness is awake, alert, obeys commands, Oriented to person, place, time, situation. Cardiovascular: Heart tones present Capillary refill < 3 seconds in bilateral fingers Patient's skin is warm and dry. Rhythm is sinus tachycardia. Respiratory: Respiratory effort is even, unlabored, Respiratory pattern is regular, Breath sounds are clear bilaterally. GI: No signs and/or symptoms were reported involving the gastrointestinal system. : No signs and/or symptoms were reported regarding the genitourinary system. EENT: No signs and/or symptoms were reported regarding the EENT system. Derm: Skin is intact, Skin is dry, Skin is normal. Musculoskeletal: No deficits noted. 04:15 Reassessment: Patient appears in no apparent distress at this time. Patient is alert, lp1 oriented x 3, equal unlabored respirations, skin warm/dry/pink. Vital Signs: 02:45 BP 157 / 110; Pulse 114; Resp 18; Temp 98.1(O); Pulse Ox 100% on R/A; Weight 77.11 kg fc (R); Height 5 ft. 6 in. (167.64 cm) (R); Pain 6/10; 03:13 BP 161 / 99; Pulse 113; Resp 20; Pulse Ox 100% on R/A; lp1 04:15 BP 156 / 97; Pulse 113; Resp 20; Pulse Ox 100% on R/A; lp1 04:45 BP 155 / 102; Pulse 104; Resp 15; Pulse Ox 100% on R/A; lp1 05:05 BP 146 / 97; Pulse 101; Resp 20; Pulse Ox 100% on R/A; lp1 05:30 BP 141 / 93; Pulse 103; Resp 17; Pulse Ox 100% on R/A; lp1 02:45 Body Mass Index 27.44 (77.11 kg, 167.64 cm) ED Course: 02:45 Arm band placed on Patient placed in an exam room, on a stretcher. 02:45 Patient has correct armband on for positive identification. Placed in gown. Bed in low fc position. Call light in reach. castings drafter on. Pulse ox on. NIBP on. 02:45 No provider procedures requiring assistance completed. Patient maintains SpO2 fc saturation greater than 95% on room air. 02:46 Patient arrived in ED. [id number] 03:00 Triage completed. 03:04 Heidy Lazaro RN is Primary Nurse. lp1 03:06 Girma Abdullahi MD is Attending Physician. chadd 03:48 Inserted saline lock: 20 gauge in right antecubital area, using aseptic technique. jd3 Blood collected. 04:10 Corky Hicks MD is Hospitalizing Provider. chadd 05:22 Patient admitted, IV remains in place. lp1 Administered Medications: 04:31 Drug: Aspirin 81 mg Route: PO; lp1 05:22 Follow up: Response: No adverse reaction lp1 04:31 Drug: Lopressor (metoprolol TARTRATE) 50 mg Route: PO; lp1 05:22 Follow up: Response: No adverse reaction; Blood pressure is lowered lp1 04:32 Drug: Lopressor 2.5 mg Route: IVP; Site: right antecubital; lp1 05:22 Follow up: Response: No adverse reaction; Blood pressure is lowered lp1 Outcome: 04:11 Decision to Hospitalize by Provider. chadd 05:22 Condition: stable lp1 05:22 Instructed on the need for admit. 05:22 Admitted to Med/surg via wheelchair, room 216, with chart, Report called to NURIA Rubalcava lp1 05:45 Patient left the ED. lp1 Signatures: Girma Abdullahi MD MD cha Chretien, Felicia, RN RN Heidy Lazaro RN RN lp1 Camilo Garcia RN RN jd3 Gutierrez, Jessica jAtilio
[2019-09-22 04:14] LABS: Absolute Lymphocytes (CBC) 2.4 K/uL (0.7-4.9); Basophils % 1.3 % (0-1.3); Hematocrit 37.8 % (36.0-45.0); Lymphocytes % 29.9 % (15.3-44.8); MPV 8.7 fL (7.6-11.3); RBC Red Blood Cell Count 4.88 M/uL (3.86-4.86)
--- NOTE | 2019-09-22 04:14 | EDPHYS ---
Physician Documentation [facility] Name: Denis Arroyo Age: 28 yrs Sex: Female : 1990 Arrival Date: 09/22/2019 Time: 02:46 Bed 8 Private MD: ED Physician Girma Abdullahi HPI: 09/22 03:23 This 28 yrs old Black Female presents to ER via Ambulatory with complaints of Chest chadd Pain, High Blood Pressure. 03:23 The patient or guardian reports chest pain that is located primarily in the substernal chadd area. The pain does not radiate. Associated signs and symptoms: Pertinent positives: lower extremity swelling. The chest pain is described as a pressure. Duration: The patient or guardian reports a single episode, that is still ongoing. Severity of pain: At its worst the pain was mild moderate in the emergency department the pain is unchanged. The patient has not experienced similar symptoms in the past. 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 - Coronavirus screen:: The patient has NOT traveled to [place], [place], or [place] in the past 14 days. The patient has NOT had contact with known/suspected case of Coronavirus?. - Social history:: Smoking status: Patient denies any tobacco usage or history of. Patient uses alcohol, occasionally. Patient/guardian denies using street drugs. - Family history:: not pertinent. - Ebola Screening: : Patient negative for fever greater than or equal to 101.5 degrees Fahrenheit, and additional compatible Ebola Virus Disease symptoms Patient denies exposure to infectious person Patient denies travel to an Ebola-affected area in the 21 days before illness onset. ROS: 03:23 Constitutional: Negative for fever, chills, and weight loss, Eyes: Negative for injury, chadd pain, redness, and discharge, ENT: Negative for injury, pain, and discharge, Neck: Negative for injury, pain, and swelling, Respiratory: Negative for shortness of breath, cough, wheezing, and pleuritic chest pain, Abdomen/GI: Negative for abdominal pain, nausea, vomiting, diarrhea, and constipation, Back: Negative for injury and pain, : Negative for injury, bleeding, discharge, and swelling, Skin: Negative for injury, rash, and discoloration, Neuro: Negative for headache, weakness, numbness, tingling, and seizure, Psych: Negative for depression, anxiety, suicide ideation, homicidal ideation, and hallucinations, Allergy/Immunology: Negative for hives, rash, and allergies, Endocrine: Negative for neck swelling, polydipsia, polyuria, polyphagia, and marked weight changes, Hematologic/Lymphatic: Negative for swollen nodes, abnormal bleeding, and unusual bruising. 03:23 Cardiovascular: Positive for chest pain, of the chest. 03:23 MS/extremity: Positive for pain, swelling, tenderness, of the right leg and left leg. Exam: 03:23 Constitutional: This is a well developed, well nourished patient who is awake, alert, chadd and in no acute distress. Head/Face: Normocephalic, atraumatic. Eyes: Pupils equal round and reactive to light, extra-ocular motions intact. Lids and lashes normal. Conjunctiva and sclera are non-icteric and not injected. Cornea within normal limits. Periorbital areas with no swelling, redness, or edema. ENT: Nares patent. No nasal discharge, no septal abnormalities noted. Tympanic membranes are normal and external auditory canals are clear. Oropharynx with no redness, swelling, or masses, exudates, or evidence of obstruction, uvula midline. Mucous membranes moist. Neck: Trachea midline, no thyromegaly or masses palpated, and no cervical lymphadenopathy. Supple, full range of motion without nuchal rigidity, or vertebral point tenderness. No Meningismus. Chest/axilla: Normal chest wall appearance and motion. Nontender with no deformity. No lesions are appreciated. Respiratory: Lungs have equal breath sounds bilaterally, clear to auscultation and percussion. No rales, rhonchi or wheezes noted. No increased work of breathing, no retractions or nasal flaring. Abdomen/GI: Soft, non-tender, with normal bowel sounds. No distension or tympany. No guarding or rebound. No evidence of tenderness throughout. Back: No spinal tenderness. No costovertebral tenderness. Full range of motion. Skin: Warm, dry with normal turgor. Normal color with no rashes, no lesions, and no evidence of cellulitis. Neuro: Awake and alert, GCS 15, oriented to person, place, time, and situation. Cranial nerves II-XII grossly intact. Motor strength 5/5 in all extremities. Sensory grossly intact. Cerebellar exam normal. Normal gait. Psych: Awake, alert, with orientation to person, place and time. Behavior, mood, and affect are within normal limits. 03:23 Cardiovascular: Rate: tachycardic, Rhythm: regular, Pulses: Pulses are 4+ in bilateral radial, brachial, femoral, popliteal, posterior tibial and and dorsalis pedis arteries.. Heart sounds: normal, Edema: 3+ edema to level of left midcalf and right midcalf, JVD: is not appreciated. Vital Signs: 02:45 BP 157 / 110; Pulse 114; Resp 18; Temp 98.1(O); Pulse Ox 100% on R/A; Weight 77.11 kg fc (R); Height 5 ft. 6 in. (167.64 cm) (R); Pain 6/10; 03:13 BP 161 / 99; Pulse 113; Resp 20; Pulse Ox 100% on R/A; lp1 04:15 BP 156 / 97; Pulse 113; Resp 20; Pulse Ox 100% on R/A; lp1 04:45 BP 155 / 102; Pulse 104; Resp 15; Pulse Ox 100% on R/A; lp1 05:05 BP 146 / 97; Pulse 101; Resp 20; Pulse Ox 100% on R/A; lp1 05:30 BP 141 / 93; Pulse 103; Resp 17; Pulse Ox 100% on R/A; lp1 02:45 Body Mass Index 27.44 (77.11 kg, 167.64 cm) MDM: 03:06 Patient medically screened. [facility] 03:26 Data reviewed: vital signs, nurses notes, lab test result(s), EKG, radiologic studies, [facility] plain films. 09/22 03:22 Order name: Basic Metabolic Panel [facility] 09/22 03:22 Order name: CBC with Diff [facility] 09/22 03:22 Order name: LFT's 09/22 03:22 Order name: Magnesium 09/22 03:22 Order name: NT PRO-BNP 09/22 03:22 Order name: PT-INR chadd 09/22 03:22 Order name: Troponin (emerg Dept Use Only) [facility] 09/22 03:52 Order name: Urine Dipstick--Ancillary (enter results) [facility] 09/22 03:52 Order name: Urine --Ancillary (enter results) [facility] 09/22 04:18 Order name: CBC with Automated Diff; Complete Time: 05:06 EDMS 09/22 04:32 Order name: Protime (+INR); Complete Time: 05:06 EDMS 09/22 04:36 Order name: Basic Metabolic Panel; Complete Time: 05:06 EDMS 09/22 04:36 Order name: Liver (Hepatic) Function; Complete Time: 05:06 EDMS 09/22 04:36 Order name: Troponin (Emerg Dept Use Only); Complete Time: 05:06 EDMS 09/22 03:22 Order name: XRAY Chest (1 view) chadd 09/22 03:22 Order name: EKG; Complete Time: 03:57 chadd 09/22 03:22 Order name: Cardiac monitoring; Complete Time: 03:23 chadd 09/22 03:22 Order name: EKG - Nurse/Tech; Complete Time: 03:22 chadd 09/22 03:22 Order name: IV Saline Lock; Complete Time: 03:53 chadd 09/22 03:22 Order name: Labs collected and sent; Complete Time: 03:53 chadd 09/22 03:22 Order name: O2 Per Protocol; Complete Time: 03:23 chadd 09/22 03:22 Order name: O2 Sat Monitoring; Complete Time: 03:23 chadd 09/22 04:36 Order name: NT PRO-BNP; Complete Time: 05:06 EDMS 09/22 04:36 Order name: Magnesium; Complete Time: 05:06 EDMS 09/22 04:36 Order name: Urine --Ancillary; Complete Time: 05:06 EDMS 09/22 04:36 Order name: Urine Dipstick-Ancillary; Complete Time: 05:06 EDMS 09/22 03:22 Order name: Urine Dipstick-Ancillary (obtain specimen); Complete Time: 03:53 chadd 09/22 03:22 Order name: Urine Test (obtain specimen); Complete Time: 03:53 [facility] Administered Medications: 04:31 Drug: Aspirin 81 mg Route: PO; lp1 05:22 Follow up: Response: No adverse reaction lp1 04:31 Drug: Lopressor (metoprolol TARTRATE) 50 mg Route: PO; lp1 05:22 Follow up: Response: No adverse reaction; Blood pressure is lowered lp1 04:32 Drug: Lopressor 2.5 mg Route: IVP; Site: right antecubital; lp1 05:22 Follow up: Response: No adverse reaction; Blood pressure is lowered lp1 Disposition: 09/22/19 04:11 Hospitalization ordered by Corky Hicks for Observation. Preliminary diagnosis are Essential (primary) hypertension, Chest pain, unspecified, Edema, unspecified, Proteinuria, Type 1 diabetes mellitus, Tachycardia, unspecified. - Bed requested for Telemetry/MedSurg (observation). - Status is Observation. lp1 - Condition is Fair. - Problem is new. - Symptoms have improved. Signatures: Dispatcher [employer] EDMS Irish Cintron RN RN mw Anderson, Corey, MD MD cha Chretien, Felicia, RN RN Heidy Lazaro RN RN lp1 Corrections: (The following items were deleted from the chart) 04:20 04:11 Hospitalization Ordered by Corky Hicks MD for Observation. Preliminary diagnosis chadd is Essential (primary) hypertension; Chest pain, unspecified; Edema, unspecified; Proteinuria; Type 1 diabetes mellitus. Bed requested for Telemetry/MedSurg (observation). Status is Observation. Condition is Fair. Problem is new. Symptoms have improved. [facility] 04:40 04:20 09/22/2019 04:11 Hospitalization Ordered by Corky Hicks MD for Observation. mw Preliminary diagnosis is Essential (primary) hypertension; Chest pain, unspecified; Edema, unspecified; Proteinuria; Type 1 diabetes mellitus; Tachycardia, unspecified. Bed requested for Telemetry/MedSurg (observation). Status is Observation. Condition is Fair. Problem is new. Symptoms have improved. chadd 05:45 04:40 09/22/2019 04:11 Hospitalization Ordered by Corky Hicks MD for Observation. lp1 Preliminary diagnosis is Essential (primary) hypertension; Chest pain, unspecified; Edema, unspecified; Proteinuria; Type 1 diabetes mellitus; Tachycardia, unspecified. Bed requested for Telemetry/MedSurg (observation). Status is Observation. Condition is Fair. Problem is new. Symptoms have improved. mw
[2019-09-22] MEDS ORDERED: METOPROLOL TARTRATE 5 MG/5 ML INJ IV ONE (04:29)
[2019-09-22] MEDS ORDERED: METOPROLOL TAR 50 MG TAB ONE (04:29)
[2019-09-22] MEDS ORDERED: ASPIRIN 81 MG CHEWABLE TABLET ONE (04:29)
[2019-09-22 04:33] LABS: Urine Blood 1+ (NEG); Urine Glucose NEGATIVE (NEG); Urine Protein 3+ (NEG); Urine Specific Gravity 1.015 (1.005-1.030); Urine pH 6.5 (5.0-7.0)
[2019-09-22 04:33] LABS: ALT/SGPT 29 U/L (12-78); AST/SGOT 25 U/L (15-37); Albumin 2.1 g/dL (3.4-5.0); Alkaline Phosphatase 61 U/L (45-117); BUN Blood Urea Nitrogen 13 mg/dL (7-18); Bicarbonate 28 mmol/L (21-32); Bilirubin Direct < 0.1 mg/dL (0-0.2); Bilirubin Total 0.1 mg/dL (0.2-1.0); Glucose Level 172 mg/dL (74-106); Magnesium 2.3 mg/dL (1.8-2.4); NT PRO-BNP 228 pg/mL (<125); Potassium 4.1 mmol/L (3.5-5.1); Sodium Level 137 mmol/L (136-145); Troponin (Emerg Dept Use Only) < 0.02 ng/mL (0.0-0.045)
[2019-09-22] MEDS ORDERED: D50W 25 GM/50 ML SYRINGE/VIAL IV PRN (05:25)
[2019-09-22] MEDS ORDERED: ONDANSETRON 4 MG/2 ML VIAL IV PRN (05:25)
[2019-09-22] MEDS ORDERED: ACETAMINOPHEN 325 MG TABLET PO PRN (05:25)
[2019-09-22] MEDS ORDERED: GLUCAGON 1 MG/VIAL IM PRN (05:25)
[2019-09-22] MEDS: METOPROLOL TAR 25 MG TAB PO SCH ×2 (06:00→17:38)
[2019-09-22 06:09] VITALS: BMI 29.3
[2019-09-22] MEDS: INSULIN -REGULAR HUMAN 50 UNIT/0.5 ML ML SQ SCH ×4 (07:30→21:00)
[2019-09-22] MEDS: ASPIRIN EC 81 MG TAB PO SCH (07:53)
[2019-09-22] MEDS: MORPHINE 4 MG/ML SYR IV PRN ×2 (07:54→15:58)
[2019-09-22] MEDS: ENOXAPARIN 40 MG/0.4 ML SQ SCH (07:54)
[2019-09-22] MEDS: lisinopriL 10 MG TAB PO SCH (07:55)
[2019-09-22] MEDS ORDERED: INFLUENZA VACCINE (for 3y+) 0.5 ML DOSE IMVAC ONE (08:00)
--- NOTE | 2019-09-22 09:09 | EKG ---
Test Date: 2019-09-22 Test Time: 03:00:09 Silk Brusher: MINDY MEASUREMENT RESULTS: Intervals: Rate: 112 SD: 124 QRSD: 70 QT: 318 QTc: 434 Richey: P: 55 SD: 124 QRS: 55 T: 37 INTERPRETIVE STATEMENTS: Sinus tachycardia Otherwise normal ECG Compared to ECG 09/14/2019 19:39:25 No significant changes Electronically Signed On 09-22-19 09:09:06 DATA WAREHOUSE CONSULTANT by Francisco York
--- NOTE | 2019-09-22 09:25 | RAD REPORT ---
EXAM DESCRIPTION: Phi Single View09/22/2019 4:39 am CLINICAL HISTORY: Chest pain COMPARISON: August 2019 FINDINGS: Mild bilateral pulmonary opacities. The heart is upper limits normal size IMPRESSION: Mild bilateral pulmonary opacities may represent pneumonitis, or pulmonary edema
--- NOTE | 2019-09-22 10:41 | RAD REPORT ---
EXAM DESCRIPTION: CT - Chest For Pe Angio - 09/22/2019 8:32 am CLINICAL HISTORY: Chest pain COMPARISON: None. TECHNIQUE: Dynamically enhanced axial 3 mm thick images of the chest were obtained during administra tion of <100> mL Isovue 370 IV contrast. Coronal and oblique reconstruction images were generated and reviewed. Exam utilizes a protocol for optimal evaluation of pulmonary arterial tree. Maximum intensity projections 3D imaging was utilized All CT scans are performed using dose optimization technique as appropriate and may include automated exposure control or mA/KV adjustment according to patient size. FINDINGS: A pulmonary embolus is not seen. A thoracic aortic aneurysm is not noted. Small right pleural effusion. A pericardial effusion is not seen. Mild bilateral ground-glass opacities. IMPRESSION: Negative for a pulmonary embolism. Mild ground-glass opacities may indicate pneumonitis or pulmonary edema Small right pleural effusion
--- NOTE | 2019-09-22 12:00 | TREADMILL ---
70% H.R.: 85% H.R.: 164 90% H.R.: 100% H.R.: DX: CHEST PAIN Date of Study: 09/22/2019 Ht: 5 6 Wt: 181 lb 12.8 oz Consulting Physician: SUNNY MEDICATIONS: TYLENOL, ASPIRIN, LOVENOX, NOVOLIN-R, PRONIVIL, LOPRESSOR, LASIX, LEVIMIR, NOVOLOG HISTORY: 28 YEAR OLD FEMALE WITH HISTORY OF INSULIN DEPENDENT DIABETES MELLITUS, PRESENTED TO EMERGENNCY ROM FOR CHEST PAIN. DENIES PAIN AT TIME OF TESTING. PHYSICIAL EXAMINATION: RESTING B.P.: 150/92 RESTING H.R.: 101 RESTING EKG: NORMAL PROTOCOL: JOSE ALBERTO ROUTINE EXERCISE TIME: 4:17 MAXIMUM HEART RATE: 136 % OF PREDICTED B.P. AT PEAK STRESS: 155/88 H.R. AT 1 MINUTE POST EXERCISE: 120 IMPRESSION: STOPPED FOR FATIGUE AND LEG PAIN. NO SUPRAVENTRICULAR TACHYCARDIA, NO VENTRICULAR TACHYCARDIA, NO ARRHYTHMIA NOTED. PATIENT DENIED CHEST PAIN. SUBMAXIMAL NON-DIAGNOSTIC TEST.
--- NOTE | 2019-09-22 12:10 | CON ---
History Of Present Illness: Ms. Arroyo is 28. She came to the hospital with chest pain. She was [facility]. The pain is in left pectoral region. She gets it occasionally. It has been when she is up work ing, seems to get better when she goes away. It does not get better or worse with a deep breath or b chino position. Since she has been here in the hospital, her cardiac enzymes are normal. Her EKG is n ot available. Ms. Arroyo has had diabetes since age 14, type 1 insulin-dependent diabetes. She has nev er had myocardial infarction or stroke. She has mild renal insufficiency and for about a week, she h as been on furosemide and lisinopril for hypertension. She has had numerous spells of blood pressure going up over the past few years, but only on therapy for about a week. She uses no tobacco. No il legal drugs. No alcohol. Physical Examination: Vital Signs: 5 feet 6 inches, 181 pounds. General: Alert, oriented, pleasant. Lungs: Clear. Cardiac: Normal. Abdomen: Soft. Extremities: 2+ edema. Distal pulses diminished but palpable. Impression: The patient may have had a pulmonary embolus. It could be coronary heart disease even a t her young age. I think doing a fasting lipid profile would be good, but fasting cannot be done tod dinorah. I think she should have an echo, routine stress test, and CT angio of the chest. NATY Voice ID: [id number] Report ID: [id number]
--- NOTE | 2019-09-22 12:24 | ECHO ---
HEIGHT: 5 ft 6 in WEIGHT: 181 lb 12.8 oz DATE OF STUDY: 09/22/[address]: Girma Abdullahi MD 2-DIMENSIONAL: YES M.MODE: YES DOPPLER: YES COLOR FLOW: YES TDS: NO PORTABLE: NO DEFINITY: NO BUBBLE STUDY: NO DIAGNOSIS: CHEST PAIN CARDIAC HISTORY: CATHERIZATION: NO SURGERY: NO PROSTHETIC VALVE: NO PACEMAKER: NO MEASUREMENTS (cm) DIASTOLIC (NORMALS) SYSTOLIC (NORMALS) IVSd 0.7 (0.6-1.2) LA Diam 3.0 (1.9-4.0) LVEF 61% LVIDd 4.6 (3.5-5.7) LVIDs 3.1 (2.0-3.5) %FS 33% LVPWd 1.0 (0.6-1.2) Ao Diam 2.6 (2.0-3.7) 2 DIMENSIONAL ASSESSMENT: RIGHT ATRIUM: NORMAL LEFT ATRIUM: NORMAL RIGHT VENTRICLE: NORMAL LEFT VENTRICLE: NORMAL TRICUSPID VALVE: NORMAL MITRAL VALVE: NORMAL PULMONIC VALVE: NORMAL AORTIC VALVE: NORMAL PERICARDIAL EFFUSION: NONE AORTIC ROOT: NORMAL LEFT VENTRICULAR WALL MOTION: NORMAL. DOPPLER/COLOR FLOW: NORMAL. COMMENTS: NORMAL 2D ECHO WITH DOPPLER. TECHNOLOGIST: AMANDO WALSH
--- NOTE | 2019-09-22 14:16 | RAD REPORT ---
EXAM DESCRIPTION: US - Renal Ultrasound-Complete - 09/22/2019 1:20 pm CLINICAL HISTORY: Proteinuria COMPARISON: None. FINDINGS: The right kidney measures 11 cm with an increased echotexture. The left kidney measures 11 cm with an increased echotexture. Hydronephrosis is not seen. No gross abnormality of bladder is seen IMPRESSION: Increased renal echotexture consistent with parenchymal disease
--- NOTE | 2019-09-22 21:19 | CON ---
Date of Consultation: 09/22/2019 Reason For Consultation: Elevated blood pressure, edema. History Of Present Illness: This is a 28-year-old female without any significant past medical histor y. Patient apparently came for the ER visit 2 weeks ago at that time, has complaint from carrie keane d has proteinuria for that reason the patient was started on lisinopril and patient was referred to farzana epps with me in the office. Unfortunately, patient did not make it to the office, supposed her appoi ntment to be last week, did not make it schedule for today and apparently, she came to the emergency room because of feeling headache, nausea without any vomiting, found to have when arrived to the ER o f the leg swelling and hypertension. For that reason, patient was admitted. Patient denied any shor tness of breath. Patient denied taking any recent IV contrast. The patient admits that she has been taking Aleve 1 tablet to 2 tablets in a daily basis for the last 2 weeks. Patient denied any rash. No recent exposure to antibiotic. Patient denied any dry skin or constipation. Past Medical History: Includes: 1.Hypertension. 2.Proteinuria. Allergies: IBUPROFEN. Surgical History: Negative. Family History: Positive for hypertension and coronary artery disease. Social History: Denies smoking. Denies drinking. Denies drugs abuse. Review of Systems: Head and Neck: Has headache. GI: No nausea, no vomiting. : No polyuria, no dysuria, no hematuria. No foamy urine. Application Support Engineer: No vaginal discharge. Respiratory: No shortness of breath. Cardiovascular: Has leg swelling. Endocrine: No polydipsia. Skin: No rash. Neuro: Has headache. Musculoskeletal: No joint swelling. Skin: No mouth ulcer. Physical Examination: Vital Signs: When I saw the patient blood pressure 132/73, pulse of 100, afebrile. Upon presentatio n, her blood pressure was 161/91. Chest: Clear to auscultation. Heart: S1, S2. Systolic murmur. Abdomen: Soft, nontender. Extremities: +2 edema. Skin: No rashes. No ulcer. Musculoskeletal: No joint tenderness or swelling. Neurologic: Alert and oriented x3. No focal. Laboratory Data: Patient's WBC 8.1, H and H 12.1/37.8, platelet 380. Urinalysis, specific gravity o f 1.015, + 3 protein. No PC ratio was done. INR is 1. Blood sugar above 200, occasionally up to 30 0. Sodium 137, potassium 4.1, bicarb 28, BUN 13, creatinine 0.7, glucose 172, calcium 8.6, magnesium 2.3. BNP 228. TSH 5. Echocardiogram has been done by Cardiology showing normal ejection fraction, no valvular disease. Renal ultrasound, normal size kidney 11 x 11. No sign of infiltration. CT ch est angio has been done, negative for PE. Has mild ground-glass opacity, questionable of pneumonitis /pulmonary edema. Doppler for the lower extremity was done at the previous ER visit at that time, jesse brooks for DVT. Current Medications: The patient on in the hospital include: 1.Aspirin. 2.Lovenox. 3.Lisinopril. 4.Metoprolol. 5.Zofran. Assessment And Plan: 1.Hypertension, uncontrolled in young lady with significant proteinuria. Echocardiogram negative. Ultrasound did not suspect any renal artery stenosis, has normal kidney size symmetrical. I am going to go ahead and send for plasma renin activity, aldosterone and metanephrine, and we will follow up. 2.Proteinuria. We will send for quantification. I am going to send for full serology. Patient randall arently has hyperglycemia, diabetes needs to be ruled out. I am going to go ahead and send for hemog lobin A1c. We will monitor the patient. 3.With the presence of the anemia, light chain disease needs to be ruled out. I am going to send fo r protein electrophoresis. 4.Hypertension as above with the presence of the edema. I am going to add Lasix to her regimen. Co ntinue current treatment. Continue MARTY inhibitor. I had long discussion with the patient regarding the . The patient does not have any interest in the currently. 5.Anemia with the presence of acute kidney injury, light chain disease needs to be ruled out. We wi ll send for anemia workup. We will send for protein electrophoresis. Patient's case discussed with the patient. Patient verbalized understanding. ROMEO/ANNA Voice ID: [id number] Report ID: [id number]
--- NOTE | 2019-09-23 02:55 | HP ---
Date of Admission: 09/22/2019 Chief Complaint: Chest pain, swelling of the legs. History Of Present Illness: 28-year-old female, who has insulin-requiring diabetes for many years, w as seen in my office for leg swelling. Her urine showed large amount of protein. Based on her histo ry, a diagnosis of nephrotic syndrome was made. She was advised to do additional blood work and foll ow with the livestock yard attendant. She made her appointment; however, since she had chest pain, she came to [facility] ER, where extensive workup was done with CT chest, troponin, EKG, etc. Patient is admitted. Ther e is no evidence of myocardial injury. Past Medical History: Positive for insulin-requiring diabetes. Family History: Diabetes present. Personal History: Nonsmoker. Allergies: MOTRIN. Review of Systems: No fever, chills, rigors. Physical Examination: General: Revealed 28-year-old female. Vital Signs: Blood pressure 150/90. HEENT: Negative. Neck: Supple. JVD negative. Chest: Clear. Heart: Regular. Abdomen: Soft. Extremities: Bilateral leg edema noted. Laboratory Data: Troponin normal. CBC normal. Chem profile at admission; albumin was low of 2.1. Random blood sugar of 172. Echocardiogram negative. Assessment: 1.Chest pain. 2.Insulin-requiring diabetes. 3.Probable nephrotic syndrome. 4.Hypertension. Plan: Patient is being seen by nephrology and cardiology services pending that she will be covered w ith insulin schedule. JESSE/ANNA Voice ID: [id number]
[2019-09-23 05:01] LABS: Urine Protein/Creatinine Ratio 8.81 ratio (<0.15)
[2019-09-23 05:36] LABS: Absolute Lymphocytes (CBC) 2.4 K/uL (0.7-4.9); Basophils % 0.8 % (0-1.3); Hematocrit 33.6 % (36.0-45.0); Lymphocytes % 37.1 % (15.3-44.8); MPV 8.1 fL (7.6-11.3); RBC Red Blood Cell Count 4.35 M/uL (3.86-4.86)
[2019-09-23] MEDS: METOPROLOL TAR 25 MG TAB PO SCH (06:22)
[2019-09-23 06:31] LABS: Albumin 1.7 g/dL (3.4-5.0); BUN Blood Urea Nitrogen 8 mg/dL (7-18); Bicarbonate 28 mmol/L (21-32); Creatine Phosphokinase 492 U/L (26-192); Ferritin 22.5 ng/mL (8-388); Folic Acid, (Folate) 16.2 ng/mL (3.1-17.5); Glucose Level 188 mg/dL (74-106); Phosphorus 4.5 mg/dL (2.5-4.9); Potassium 4.1 mmol/L (3.5-5.1); Sodium Level 140 mmol/L (136-145); Transferrin 203 mg/dL (200-360)
[2019-09-23 08:03] VITALS: O2SAT 97
[2019-09-23] MEDS: ENOXAPARIN 40 MG/0.4 ML SQ SCH (08:30)
[2019-09-23] MEDS: INSULIN -REGULAR HUMAN 50 UNIT/0.5 ML ML SQ SCH ×3 (08:30→16:59)
[2019-09-23] MEDS: lisinopriL 10 MG TAB PO SCH (08:31)
[2019-09-23] MEDS: ASPIRIN EC 81 MG TAB PO SCH (08:31)
[2019-09-23] MEDS ORDERED: FUROSEMIDE 40 MG/4 ML VIAL IV SCH (09:00)
[2019-09-23] MEDS ORDERED: SOD FERRIC GLUC COMPLX/SUCROSE 250 MG in NA CHLORIDE 0.9% 250 ML IV SCH (11:00)
[2019-09-23] MEDS: MORPHINE 4 MG/ML SYR IV PRN (12:24)
--- NOTE | 2019-09-23 15:57 | PN ---
Date of Progress Note: 09/23/2019 Subjective: Patient was admitted with anasarca, hypertension. Patient's workup showed nephrotic ran ge proteinuria. Patient has background of diabetes type 1. Physical Examination: Vital Signs: Blood pressure 137/84, pulse of 100. Chest: Clear to auscultation. Heart: S1, S2 regular. Abdomen: Soft, nontender. Extremities: Trace edema. Laboratory Data: H and H 10.8/33.6. Sodium 140, potassium 4.1, bicarb 28, BUN 8, creatinine 0.5. T -sat of 13, ferritin 22, albumin 1.6. Vitamin D still pending. TSH 5.1. PTH 24. PC ratio of 8. S erology still pending. Current Medications: The patient is on and include: 1.Aspirin. 2.Lovenox. 3.Lisinopril 10 daily. 4.Metoprolol. 5.Lasix 40 daily. 6.Morphine. 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 Continue A CE inhibitor. I am going to change metoprolol to carvedilol for better synergistic effect on the pro teinuria. We will change the Lasix to p.o. for discharge planning and we will monitor the patient. Patient cleared from the renal standpoint for discharge planning to follow up in the office in 2-3 we eks. We will follow up on the serology. 2.Hypertension. Workup for secondary hypertension still pending given the young age. We will follo w up as outpatient, currently being controlled. 3.Diabetes as by primary. ROMEO/ANNA Voice ID: [id number] Report ID: [id number]
[2019-09-23 16:13] VITALS: BP 150/90; TEMP 96.9
[2019-09-23] MEDS ORDERED: carvediloL 3.125 MG TAB PO SCH (18:00)
[2019-09-24] MEDS ORDERED: FUROSEMIDE 40 MG TABLET PO SCH (09:00)
[2019-09-24 10:43] LABS: Rheumatoid Factor NEG (NEG)
[2019-09-27 09:02] LABS: HIV AG/AB 4TH GEN Non-reactive (Non-reactive)
[2019-09-28 04:11] LABS: HBsAG Nonreactive (Nonreactive)
[2019-09-28 13:42] LABS: Hepatitis C Virus RNA (PCR)log <1.18 log IU/mL
[2019-09-29 22:35] LABS: Vitamin D 1,25-Dihydroxy Total 38 pg/mL (18-72); Vitamin D,1,25-OH2, D2 <8 pg/mL
== END 2019-09-23 17:45 | disposition home or self-care (01) | DRG 313 ==
LOC: ER 02:44 → ERHOLD 04:58 → 2ND 05:22 → OBSVTOIN 14:58
PROVIDERS: ADMIT Internal Medicine; ATTEND Internal Medicine
DX: R07.9 Chest pain, unspecified (principal); N17.9 Acute kidney failure, unspecified; I10 Essential (primary) hypertension; E10.21 Type 1 diabetes mellitus with diabetic nephropathy; Z79.82 Long term (current) use of aspirin; D64.9 Anemia, unspecified
CPT/HCPCS: 36415; 71045; 71275; 76770; 80048; 80069; 80076; 81003; 81025; 82088; 82550; 82570; 82607; 82652; 82728; 82746; 82947; 83520; 83540; 83735; 83880; 83970; 84156; 84244; 84439; 84443; 84466; 84484; 85025; 85044; 85610; 86021; 86160; 86225; 86430; 86704; 86706; 87340; 87389; 87522; 93005; 93017; 93306; 96374; 99285; G0378; J1650; J1940; J2916; J7030; Q9967

== ENCOUNTER 2019-12-29 15:36 | Emergency (ER) | payer SELFPAY ==
[2019-12-29] MEDS ORDERED: HYDROCODONE/APAP 5/325 MG TAB ONE (16:08)
--- NOTE | 2019-12-29 17:09 | RAD REPORT ---
EXAM DESCRIPTION: RAD - Chest Single View - 12/29/2019 5:04 pm CLINICAL HISTORY: RIB PAIN - LEFT COMPARISON: September 22, 2019 TECHNIQUE: AP portable chest image was obtained 12/29/2019 5:04 pm . FINDINGS: Lung volumes are low but similar to comparison. Interstitial pattern is prominent but matc hes comparison. No focal mass or consolidation. No significant failure or volume overload findings. H eart and vasculature are normal. No measurable pleural effusion and no pneumothorax. No acute bony ab normality seen. No acute aortic findings suspected. IMPRESSION: No acute cardiopulmonary process. Chest is not significantly different from comparison.
--- NOTE | 2019-12-29 17:10 | RAD REPORT ---
EXAM DESCRIPTION: RAD - Ribs Left - 12/29/2019 5:04 pm CLINICAL HISTORY: Left-sided chest pain COMPARISON: None. FINDINGS: No displaced rib fracture is seen and no non-displaced rib fractures suspected. No aggress uzma rib lesion. No underlying pneumothorax, effusion, infiltrate or pulmonary contusion. IMPRESSION: Negative left rib series.
[2019-12-29 17:36] LABS: Urine Bacteria 20-50 /HPF (<20)
[2019-12-29 17:37] LABS: Urine Culture Reflex Order NOT NEEDED
--- NOTE | 2019-12-29 17:41 | EDPHYS ---
Physician Documentation [facility] Name: Denis Arroyo Age: 29 yrs Sex: Female : 1990 Arrival Date: 12/29/2019 Time: 15:39 Bed 14 Private MD: Corky Hicks R ED Physician Portia Tabares HPI: 12/28 15:55 This 29 yrs old Black Female presents to ER via Ambulatory with complaints of Flank snw Pain. 15:55 The patient complains of pain in the left lateral anterior chest. The pain does not snw radiate. Onset: The symptoms/episode began/occurred suddenly, 5 day(s) ago, s/p stretching, pt felt a pop. Modifying factors: The symptoms are alleviated by nothing. the symptoms are aggravated by movement, palpation/percussion. Associated signs and symptoms: The patient has no apparent associated signs or symptoms. Severity of pain: At its worst the pain was moderate. The patient has not experienced similar symptoms in the past. The patient has not recently seen a physician. 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 - Social history:: Smoking status: Patient denies any tobacco usage or history of. ROS: 15:55 Constitutional: Negative for fever, chills, and weight loss, Eyes: Negative for injury, snw pain, redness, and discharge, ENT: Negative for injury, pain, and discharge, Neck: Negative for injury, pain, and swelling, Cardiovascular: Negative for chest pain, palpitations, and edema, Abdomen/GI: Negative for abdominal pain, nausea, vomiting, diarrhea, and constipation, Back: Negative for injury and pain, : Negative for injury, bleeding, discharge, and swelling, MS/Extremity: Negative for injury and deformity, Skin: Negative for injury, rash, and discoloration, Neuro: Negative for headache, weakness, numbness, tingling, and seizure, Psych: Negative for depression, anxiety, suicide ideation, homicidal ideation, and hallucinations. 15:55 Respiratory: Positive for pleurisy, of the left lateral anterior chest. Exam: 15:54 Constitutional: This is a well developed, well nourished patient who is awake, alert, snw and in no acute distress. Head/Face: Normocephalic, atraumatic. Eyes: Pupils equal round and reactive to light, extra-ocular motions intact. Lids and lashes normal. Conjunctiva and sclera are non-icteric and not injected. Cornea within normal limits. Periorbital areas with no swelling, redness, or edema. ENT: Nares patent. No nasal discharge, no septal abnormalities noted. Tympanic membranes are normal and external auditory canals are clear. Oropharynx with no redness, swelling, or masses, exudates, or evidence of obstruction, uvula midline. Mucous membranes moist. Neck: Trachea midline, no thyromegaly or masses palpated, and no cervical lymphadenopathy. Supple, full range of motion without nuchal rigidity, or vertebral point tenderness. No Meningismus. Chest/axilla: Normal chest wall appearance and motion. tender lower, lateral ribs with no deformity. No lesions are appreciated. Respiratory: Lungs have equal breath sounds bilaterally, clear to auscultation and percussion. No rales, rhonchi or wheezes noted. No increased work of breathing, no retractions or nasal flaring. Abdomen/GI: Soft, non-tender, with normal bowel sounds. No distension or tympany. No guarding or rebound. No evidence of tenderness throughout. Back: No spinal tenderness. No costovertebral tenderness. Full range of motion. Skin: Warm, dry with normal turgor. Normal color with no rashes, no lesions, and no evidence of cellulitis. MS/ Extremity: Pulses equal, no cyanosis. Neurovascular intact. Full, normal range of motion. Neuro: Awake and alert, GCS 15, oriented to person, place, time, and situation. Cranial nerves II-XII grossly intact. Motor strength 5/5 in all extremities. Sensory grossly intact. Cerebellar exam normal. Normal gait. Psych: Awake, alert, with orientation to person, place and time. Behavior, mood, and affect are within normal limits. 15:54 Cardiovascular: Rate: tachycardic, Rhythm: regular, Edema: is not appreciated. Vital Signs: 15:45 BP 158 / 93; Pulse 108; Resp 18; Temp 98.5(O); Pulse Ox 100% on R/A; Weight 68.04 kg; em Height 5 ft. 6 in. (167.64 cm); Pain 6/10; 16:40 BP 178 / 103; Pulse 105; Resp 18; Pulse Ox 100% on R/A; vc 15:45 Body Mass Index 24.21 (68.04 kg, 167.64 cm) em MDM: 15:49 Patient medically screened. snw 17:42 Data reviewed: vital signs, nurses notes. Data interpreted: Pulse oximetry: on room air snw is 100 %. Interpretation: normal. Counseling: I had a detailed discussion with the patient and/or guardian regarding: the historical points, exam findings, and any diagnostic results supporting the discharge/admit diagnosis, lab results, radiology results, the need for outpatient follow up, to return to the emergency department if symptoms worsen or persist or if there are any questions or concerns that arise at home. Special discussion: Based on the patient's history, exam, and Dx evaluation, there is no indication for emergent intervention or inpatient Tx. It is understood by the patient/guardian that if the Sx's persist or worsen they need to return immediately for re-evaluation. I have referred the patient to see his PCP for further evaluation of high blood pressure. Based on the history and exam findings, there is no indication for further emergent testing or inpatient evaluation. I discussed with the patient/guardian the need to see the primary care provider for further evaluation of the symptoms. 12/28 15:51 Order name: Urine Culture [facility] 12/28 15:51 Order name: Urine Microscopic Only; Complete Time: 17:39 snw 12/28 15:51 Order name: Chest Single View XRAY; Complete Time: 17:11 snw 12/28 15:51 Order name: Ribs Left XRAY; Complete Time: 17:17 snw 12/28 16:52 Order name: Urine Dipstick--Ancillary (enter results); Complete Time: 18:52 bd 12/28 16:52 Order name: Urine --Ancillary (enter results); Complete Time: 18:52 bd 12/28 15:51 Order name: Urine Test (obtain specimen); Complete Time: 16:06 snw 12/28 15:51 Order name: Urine Dipstick-Ancillary (obtain specimen); Complete Time: 16:06 snw Administered Medications: 16:05 Drug: [place] 5 mg-325 mg 1 tabs Route: PO; vc 17:00 Follow up: Response: No adverse reaction; Pain is decreased vc 18:45 Drug: Rocephin (cefTRIAXone) 1 grams Route: IM; Site: right deltoid; em 19:00 Follow up: Response: No adverse reaction vc Point of Care Testing: Urine : 16:06 hCG Reading: Negative; Control Reading: Positive; jp3 Disposition: 12/29/19 17:40 Discharged to Home. Impression: Urinary tract infection, site not specified, Low back pain, Muscle spasm of back. - Condition is Stable. - Discharge Instructions: Musculoskeletal Pain, Urinary Tract Infection, Adult, Muscle Cramps and Spasms, [id number], How to Take Your Blood Pressure, [id number], Back Exercises, Nidb-zd-Tpcs, Cryotherapy, Rehydration, Adult, Heat Therapy. - Prescriptions for Augmentin 500- 125 mg Oral Tablet - take 1 tablet by ORAL route every 8 hours for 10 days; 30 tablet. orphenadrine citrate 100 mg Oral Tablet Sustained Release - take 1 tablet by ORAL route 2 times per day As needed; 20 tablet. - Medication Reconciliation Form, Thank You Letter, Antibiotic Education, Prescription Opioid Use form. - Follow up: Emergency Department; When: As needed; Reason: Worsening of condition. Follow up: Private Physician; When: 2 - 3 days; Reason: Recheck today's complaints, Continuance of care, Re-evaluation by your physician. Addendum: 12/31/2019 18:20 Co-signature as Attending Physician, Portia Tabares MD. m a2 Signatures: Dispatcher [employer] EDNV Beth Tran, ROD FINISHER-C ROD FINISHER-Csnw Andrae Gatica RN RN Portia Tabares MD MD mo2 Carola Rosa RN RN vc Corrections: (The following items were deleted from the chart) 12/28 19:06 17:40 12/29/2019 17:40 Discharged to Home. Impression: Urinary tract infection, site vc not specified; Low back pain; Muscle spasm of back. Condition is Stable. Forms are Medication Reconciliation Form, Thank You Letter, Antibiotic Education, Prescription Opioid Use. Follow up: Emergency Department; When: As needed; Reason: Worsening of condition. Follow up: Private Physician; When: 2 - 3 days; Reason: Recheck today's complaints, Continuance of care, Re-evaluation by your physician. snw
--- NOTE | 2019-12-29 17:41 | ER ---
Nurse's Notes [facility] Name: Denis Arroyo Age: 29 yrs Sex: Female : 1990 Arrival Date: 12/29/2019 Time: 15:39 Bed 14 Private MD: Corky Hicks R Diagnosis: Urinary tract infection, site not specified;Low back pain;Muscle spasm of back Presentation: 12/28 15:45 Chief complaint: Patient states: left flank pain for about a week, was stretching and em heard a pop, thought it would get better but has not improved, denies abd pain, N/V/D. Coronavirus screen: Proceed with normal triage. Patient denies a cough. Patient denies shortness of breath or difficulty breathing. Patient denies measured and/or subjective temperature greater than 100.4F prior to today's visit. Patient denies travel on a cruise ship or to a country the [facility] currently lists as an affected area. Patient denies contact with known and/or suspected case of COVID-19. Ebola Screen: Patient negative for fever greater than or equal to 101.5 degrees Fahrenheit, and additional compatible Ebola Virus Disease symptoms Patient denies exposure to infectious person. Patient denies travel to an Ebola-affected area in the 21 days before illness onset. No symptoms or risks identified at this time. Initial Sepsis Screen: Does the patient meet any 2 criteria? No. Patient's initial sepsis screen is negative. Does the patient have a suspected source of infection? No. Patient's initial sepsis screen is negative. Risk Assessment: Do you want to hurt yourself or someone else? Patient reports no desire to harm self or others. Onset of symptoms was December 22, 2019. 15:45 Method Of Arrival: Ambulatory em 15:45 Acuity: SALINAS 3 em Triage Assessment: 15:56 General: Appears in no apparent distress. uncomfortable, Behavior is calm, cooperative, vc appropriate for age. Pain: Complains of pain in left lateral anterior chest Pain does not radiate. Pain currently is 7 out of 10 on a pain scale. Quality of pain is described as sharp, Is continuous, Alleviated by medications, Aggravated by exercise, increased activity, repositioning. 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 - Social history:: Smoking status: Patient denies any tobacco usage or history of. Screenin:56 Abuse screen: Denies threats or abuse. Nutritional screening: No deficits noted. vc Tuberculosis screening: No symptoms or risk factors identified. Fall Risk None identified. Assessment: 16:07 General: Appears in no apparent distress. uncomfortable, well groomed, Behavior is vc calm, cooperative, appropriate for age. Pain: Complains of pain in left lateral anterior chest. Neuro: Level of Consciousness is awake, alert, obeys commands, Oriented to person, place, time, situation, Appropriate for age. Cardiovascular: Capillary refill < 3 seconds Patient's skin is warm and dry. Respiratory: Airway is patent Respiratory effort is even, unlabored, Respiratory pattern is regular, symmetrical. GI: No signs and/or symptoms were reported involving the gastrointestinal system. : No signs and/or symptoms were reported regarding the genitourinary system. Derm: Skin is intact, is healthy with good turgor, Skin is pink, warm \T\ dry. Musculoskeletal: Circulation, motion, and sensation intact. Range of motion: intact in all extremities. 16:45 Reassessment: Patient appears in no apparent distress at this time. Patient and/or vc family updated on plan of care and expected duration. Pain level reassessed. Patient is alert, oriented x 3, equal unlabored respirations, skin warm/dry/pink. 18:44 Reassessment: Discharge pending shot time. vc Vital Signs: 15:45 BP 158 / 93; Pulse 108; Resp 18; Temp 98.5(O); Pulse Ox 100% on R/A; Weight 68.04 kg; em Height 5 ft. 6 in. (167.64 cm); Pain 6/10; 16:40 BP 178 / 103; Pulse 105; Resp 18; Pulse Ox 100% on R/A; vc 15:45 Body Mass Index 24.21 (68.04 kg, 167.64 cm) em ED Course: 15:39 Patient arrived in ED. am2 15:39 Corky Hicks MD is Private Physician. am2 15:44 Beth Tran FNP-C [facility]. snw 15:44 Portia Tabares MD is Attending Physician. snw 15:47 Triage completed. em 15:48 Arm band placed on. em 15:52 Carola Rosa, NURIA is Primary Nurse. vc 15:58 Patient has correct armband on for positive identification. Bed in low position. Call vc light in reach. Placed in gown. Pulse ox on. NIBP on. 16:05 Urine collected: clean catch specimen, clear, vicente colored. Patient maintains SpO2 jp3 saturation greater than 95% on room air. 16:07 Verbal reassurance given. jp3 17:04 Chest Single View XRAY In Process Unspecified. EDMS 17:04 Ribs Left XRAY In Process Unspecified. EDMS 19:05 No provider procedures requiring assistance completed. vc 19:05 Patient did not have IV access during this emergency room visit. vc Administered Medications: 16:05 Drug: [place] 5 mg-325 mg 1 tabs Route: PO; vc 17:00 Follow up: Response: No adverse reaction; Pain is decreased vc 18:45 Drug: Rocephin (cefTRIAXone) 1 grams Route: IM; Site: right deltoid; em 19:00 Follow up: Response: No adverse reaction vc Point of Care Testing: Urine : 16:06 hCG Reading: Negative; Control Reading: Positive; jp3 Outcome: 17:40 Discharge ordered by . snw 19:05 Discharged to home ambulatory. vc 19:05 Condition: good 19:05 Discharge instructions given to patient, Instructed on discharge instructions, follow up and referral plans. no drinking with medication, no driving heavy equipment, medication usage, Demonstrated understanding of instructions, follow-up care, medications, Prescriptions given X 2. 19:06 Patient left the ED. vc Signatures: Dispatcher [employer] EDOH Beth Tran FNP-C SET RIDER-Csnw Andrae Gatica, RN RN Marcelina Chirinos am2 Ortiz Love jp3 Carola Rosa, NURIA RN vc Corrections: (The following items were deleted from the chart) 12/29 02:40 12/28 19:05 IV discontinued, intact, bleeding controlled, No redness/swelling at site. vc Pressure dressing applied, vc
[2019-12-29] MEDS ORDERED: CEFTRIAXONE 1000 MG/VIAL ONE (18:44)
[2019-12-29] MEDS ORDERED: LIDOCAINE 1% MPF 2 ML AMPULE ONE (18:44)
[2019-12-29] MEDS ORDERED: CEFTRIAXONE/SWI 1gm 0 GM/0 ML SYR ONE (18:46)
[2019-12-29 18:50] LABS: Urine Blood 1+ (NEG); Urine Glucose 1+ (NEG); Urine Protein 3+ (NEG); Urine Specific Gravity 1.025 (1.005-1.030); Urine pH 8.5 (5.0-7.0)
[2019-12-29 19:21] VITALS: TEMP 98.5; O2SAT 100
[2019-12-29 19:22] VITALS: BP 178/103
== END 2019-12-29 19:06 | disposition home or self-care (01) ==
LOC: ER 15:36
DX: N39.0 Urinary tract infection, site not specified (principal); M54.5 Low back pain; M62.830 Muscle spasm of back; I10 Essential (primary) hypertension; E11.9 Type 2 diabetes mellitus without complications; Z79.4 Long term (current) use of insulin; Z88.6 Allergy status to analgesic agent
CPT/HCPCS: 71045; 81003; 81015; 81025; 87086; 87088; 96372; 99284; J0696; J2001

== ENCOUNTER 2020-06-02 15:25 | Emergency (ER) | payer SELFPAY ==
--- OUTSIDE RECORDS SUMMARY | 2020-06-02 15:27 | XMS REPORT | Continuity of Care Document ---
:1990 Author Organization [facility] t Address [address] [place] [address] Care Team Providers Name Role Phone Unavailable Unavailable Unavailable Problems This patient has no known problems. Allergies, Adverse Reactions, Alerts This patient has no known allergies or adverse reactions. Medications This patient has no known medications. Procedures This patient has no known procedures. Results This patient has no known results.
--- NOTE | 2020-06-02 17:16 | RAD REPORT ---
EXAM DESCRIPTION: RAD - Foot Left 3 View - 06/02/2020 4:58 pm CLINICAL HISTORY: PAIN COMPARISON: Foot Left 3 View dated 03/04/2019; Foot Left 3 View dated 04/15/2018 FINDINGS: Oblique acute fracture is seen involving the distal third metatarsal shaft. Moderate soft tissue swelling is evident. Old fracture involving the proximal fifth metatarsal also seen.
[2020-06-02] MEDS ORDERED: HYDROCODONE/APAP 10/325 TAB ONE (17:17)
--- NOTE | 2020-06-02 17:43 | EDPHYS ---
Physician Documentation [facility] Name: Denis Arroyo Age: 29 yrs Sex: Female : 1990 Arrival Date: 06/02/2020 Time: 15:26 Bed 17 Private MD: Corky Hicks R ED Physician Chas Sanches HPI: 06/02 16:27 This 29 yrs old Black Female presents to ER via Wheelchair with complaints of Foot Pain.jmm 16:27 The patient presents with pain, that is acute, swelling. Onset: The symptoms/episode jmm began/occurred gradually, 1 day(s) ago. Modifying factors: The symptoms are alleviated by elevating leg, the symptoms are aggravated by weight bearing. Associated signs and symptoms: Pertinent positives: swelling, warmth, Pertinent negatives calf tenderness, fever. The patient has not experienced similar symptoms in the past. Patient denies trauma to the foot. Pain began yesterday. . 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 - Social history:: Smoking status: Patient denies any tobacco usage or history of. ROS: 16:27 Constitutional: Negative for fever, chills, and weight loss, Cardiovascular: Negative jmm for chest pain, palpitations, and edema, Respiratory: Negative for shortness of breath, cough, wheezing, and pleuritic chest pain. 16:27 MS/extremity: Positive for swelling, tenderness. 16:27 All other systems are negative. Exam: 16:27 Constitutional: This is a well developed, well nourished patient who is awake, alert, jmm and in no acute distress. Head/Face: atraumatic. Eyes: EOMI, no conjunctival erythema appreciated ENT: Moist Mucus Membranes Neck: Trachea midline, Supple Chest/axilla: Normal chest wall appearance and motion. Cardiovascular: Regular rate and rhythm. No edema appreciated Respiratory: Normal respirations, no respiratory distress appreciated Abdomen/GI: Non distended, soft Back: Normal ROM Skin: General appearance color normal 16:27 Musculoskeletal/extremity: swelling noted to the left foot, with warmth, full dorsalis pulse, NVI. 16:27 Skin: Appearance: Color: 16:27 Neuro: Orientation: is normal, Mentation: is normal, Memory: is normal. 16:27 Psych: Behavior/mood is pleasant, cooperative. Vital Signs: 15:40 BP 157 / 100; Pulse 116; Resp 18; Temp 98.7(O); Pulse Ox 100% on R/A; Weight 68.04 kg em (R); Height 5 ft. 6 in. (167.64 cm); Pain 5/10; 18:03 BP 139 / 82; Pulse 100; Resp 17 S; Pulse Ox 100% on R/A; jd3 15:40 Body Mass Index 24.21 (68.04 kg, 167.64 cm) em MDM: 16:10 Patient medically screened. [facility] 16:47 Data reviewed: vital signs, nurses notes. [facility] 17:41 Data reviewed: radiologic studies, plain films. Counseling: I had a detailed discussion [facility] with the patient and/or guardian regarding: the historical points, exam findings, and any diagnostic results supporting the discharge/admit diagnosis, radiology results, the need for outpatient follow up, to return to the emergency department if symptoms worsen or persist or if there are any questions or concerns that arise at home. ED course: Xray reveals a fracture. Patient advised not to bear weight and advised to follow up with ortho. . 06/02 15:49 Order name: Foot Left 3 View XRAY; Complete Time: 17:39 em 06/02 16:27 Order name: US Extremity Venous Unilateral Ltd [facility] 06/02 17:41 Order name: Ortho shoe; Complete Time: 18:04 [facility] 06/02 17:41 Order name: Crutches; Complete Time: 18:04 [facility] Administered Medications: 17:07 Drug: [place] 10 mg-325 mg 1 tabs Route: PO; jd3 18:04 Follow up: Response: No adverse reaction; RASS: Alert and Calm (0) jd3 Disposition: 06/03 13:29 Co-signature as Attending Physician, Chas Sanches MD I agree with the assessment and kdr plan of care. Disposition: 06/02/20 17:43 Discharged to Home. Impression: Nondisplaced fracture of third metatarsal bone, unspecified foot. - Condition is Stable. - Discharge Instructions: Metatarsal Fracture. - Prescriptions for Tylenol- Codeine #3 300-30 mg Oral Tablet - take 1 tablet by ORAL route every 6 hours As needed; 20 tablet. - Medication Reconciliation Form, Thank You Letter, Antibiotic Education, Prescription Opioid Use form. - Follow up: Humberto Pereyra MD; When: 2 - 3 days; Reason: Recheck today's complaints, Continuance of care, Re-evaluation by your physician. Signatures: Dispatcher [employer] EDChas Bird MD MD kdr Mickail, Joel, PA PA jmm Munoz, Edgar, RN RN em Camilo Garcia RN RN jd3 Corrections: (The following items were deleted from the chart) 06/02 18:05 17:43 06/02/2020 17:43 Discharged to Home. Impression: Nondisplaced fracture of third jd3 metatarsal bone, unspecified foot. Condition is Stable. Forms are Medication Reconciliation Form, Thank You Letter, Antibiotic Education, Prescription Opioid Use. Follow up: Dr. Humberto Pereyra; When: 2 - 3 days; Reason: Recheck today's complaints, Continuance of care, Re-evaluation by your physician. coby
--- NOTE | 2020-06-02 17:43 | ER ---
Nurse's Notes [facility] [place] Name: Denis Arroyo Age: 29 yrs Sex: Female : 1990 Arrival Date: 06/02/2020 Time: 15:26 Bed 17 Private MD: Corky Hicks R Diagnosis: Nondisplaced fracture of third metatarsal bone, unspecified foot Presentation: 06/02 15:40 Chief complaint: Patient states: left foot swelling and pain that started yesterday em morning, denies trauma. Coronavirus screen: Client denies travel out of the [place] in the last 14 days. Ebola Screen: Patient negative for fever greater than or equal to 101.5 degrees Fahrenheit, and additional compatible Ebola Virus Disease symptoms Patient denies exposure to infectious person. Patient denies travel to an Ebola-affected area in the 21 days before illness onset. No symptoms or risks identified at this time. Initial Sepsis Screen: Does the patient meet any 2 criteria? HR > 90 bpm. No. Patient's initial sepsis screen is negative. Does the patient have a suspected source of infection? No. Patient's initial sepsis screen is negative. Risk Assessment: Do you want to hurt yourself or someone else? Patient reports no desire to harm self or others. Onset of symptoms was June 01, 2020. 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 - Social history:: Smoking status: Patient denies any tobacco usage or history of. Screenin:14 Abuse screen: Denies threats or abuse. Nutritional screening: No deficits noted. jd3 Tuberculosis screening: No symptoms or risk factors identified. Fall Risk Ambulatory Aid- None/Bed Rest/Nurse Assist (0 pts). Gait- Normal/Bed Rest/Wheelchair (0 pts) Mental Status- Oriented to own ability (0 pts). Total Jimenez Fall Scale indicates No Risk (0-24 pts). Assessment: 16:11 General: Appears in no apparent distress. uncomfortable, Behavior is calm, cooperative, jd3 appropriate for age. Pain: Complains of pain in ball of left foot and arch of left foot Quality of pain is described as aching, tender. Neuro: Level of Consciousness is awake, alert, obeys commands, Oriented to person, place, time, situation. Cardiovascular: Capillary refill < 3 seconds Patient's skin is warm and dry. Respiratory: Airway is patent Respiratory effort is even, unlabored, Respiratory pattern is regular, symmetrical. GI: No signs and/or symptoms were reported involving the gastrointestinal system. : No signs and/or symptoms were reported regarding the genitourinary system. EENT: No signs and/or symptoms were reported regarding the EENT system. Derm: Skin is intact, Skin is dry, Skin is normal, Skin temperature is warm Bruising that is dark purple, on arch of left foot. Musculoskeletal: Circulation, motion, and sensation intact. Range of motion: intact in all extremities, Swelling present in left foot. 16:48 Reassessment: Patient appears in no apparent distress at this time. No changes from jd3 previously documented assessment. Patient and/or family updated on plan of care and expected duration. Pain level reassessed. Patient is alert, oriented x 3, equal unlabored respirations, skin warm/dry/pink. awaiting x-ray results. 17:39 Reassessment: Patient appears in no apparent distress at this time. Patient and/or jd3 family updated on plan of care and expected duration. Pain level reassessed. Patient is alert, oriented x 3, equal unlabored respirations, skin warm/dry/pink. awaiting ultrasound. 18:04 Reassessment: Patient appears in no apparent distress at this time. Patient and/or jd3 family updated on plan of care and expected duration. Pain level reassessed. Patient is alert, oriented x 3, equal unlabored respirations, skin warm/dry/pink. Patient states feeling better. Vital Signs: 15:40 BP 157 / 100; Pulse 116; Resp 18; Temp 98.7(O); Pulse Ox 100% on R/A; Weight 68.04 kg em (R); Height 5 ft. 6 in. (167.64 cm); Pain 5/10; 18:03 BP 139 / 82; Pulse 100; Resp 17 S; Pulse Ox 100% on R/A; jd3 15:40 Body Mass Index 24.21 (68.04 kg, 167.64 cm) em ED Course: 15:26 Patient arrived in ED. ag5 15:27 Corky Hicks MD is Private Physician. ag5 15:42 Triage completed. em 15:43 Arm band placed on. em 16:07 Chino Duffy PA is PHCP. [facility] 16:07 Chas Sanches MD is Attending Physician. [facility] 16:10 Camilo Garcia, RN is Primary Nurse. jd3 16:14 Patient has correct armband on for positive identification. Bed in low position. Call jd3 light in reach. Side rails up X 1. Adult w/ patient. Pulse ox on. NIBP on. 16:59 Foot Left 3 View XRAY In Process Unspecified. EDMS 17:43 Humberto Pereyra MD is Referral Physician. [facility] 18:04 No provider procedures requiring assistance completed. Patient did not have IV access jd3 during this emergency room visit. 18:10 US Extremity Venous Unilateral Ltd In Process Unspecified. EDMS Administered Medications: 17:07 Drug: [place] 10 mg-325 mg 1 tabs Route: PO; jd3 18:04 Follow up: Response: No adverse reaction; RASS: Alert and Calm (0) j Outcome: 17:43 Discharge ordered by MD. [facility] 18:04 Discharged to home via wheelchair, with crutches, with family. jd3 18:04 Condition: stable 18:04 Discharge instructions given to patient, Instructed on discharge instructions, follow up and referral plans. medication usage, Demonstrated understanding of instructions, follow-up care, medications, Prescriptions given X 1. 18:05 Patient left the ED. jd3 Signatures: Dispatcher [employer] EDPA Chino Duffy PA PA Andrae Salinas, RN RN Camilo Garcia, RN RN j Nicole Azevedo ag5 Corrections: (The following items were deleted from the chart) 15:50 15:40 Chief complaint: Patient states: swelling and pain that started yesterday em morning, denies trauma em 16:06 15:40 Acuity: SALINAS 3 em em
[2020-06-02 18:10] VITALS: TEMP 98.7; O2SAT 100
[2020-06-02 18:12] VITALS: BP 139/82
== END 2020-06-02 18:05 | disposition home or self-care (01) ==
LOC: ER 15:25
DX: S92.335A Nondisplaced fracture of third metatarsal bone, left foot, initial encounter for closed fracture (principal); I10 Essential (primary) hypertension; Z88.6 Allergy status to analgesic agent
CPT/HCPCS: 93971; 99284